=== PATIENT | male | born 1960 | race Caucasian/White ===

== ENCOUNTER 2017-09-14 05:49 | Inpatient (IN) ==
[2017-09-14] MEDS ORDERED: DIAZEPAM 5 MG TABLET PO ONE (06:49)
[2017-09-14] MEDS ORDERED: diphenhydrAMINE CAP 25 MG CAPSULE PO ONE (06:49)
[2017-09-14] MEDS ORDERED: MAGNESIUM SULF RIDER 2 GM in PREMIX 1 EACH IV PRN ×2 (06:49→16:15)
[2017-09-14] MEDS ORDERED: POTASSIUM CHLORIDE RIDER 10 MEQ in PREMIX 1 EACH IV PRN ×2 (06:49→16:15)
[2017-09-14] MEDS ORDERED: ASPIRIN 325 MG TABLET PO ONE (06:49)
[2017-09-14] MEDS ORDERED: SODIUM CHLORIDE 0.9% 1,000 ML IV SCH (07:00)
[2017-09-14] MEDS ORDERED: ASPIRIN 325 MG TABLET ONE (07:20)
[2017-09-14] MEDS ORDERED: DIAZEPAM 5 MG TABLET ONE (07:21)
[2017-09-14] MEDS ORDERED: diphenhydrAMINE CAP 25 MG CAPSULE ONE (07:21)
[2017-09-14 07:27] LABS: Basophils % 0.5 % (0.0-0.8); Eosinophils # 0.2 10*3/uL (0.0-0.87); Eosinophils % 2.9 % (0.00-10.9); Hematocrit 41.6 VOL% (42.0-52.0); Hemoglobin 14.6 GM/DL (14.0-18.0); Immature Granulocytes % 0.1 %; Immature Granulocytes Absolute 0.01 #; Lymphocytes # 3.1 10*3/uL (1.4-4.0); Lymphocytes % 42.8 % (21.2-54.2); Mean Corpuscular HGB Conc 35.1 GM/DL (32-36); Mean Corpuscular Hemoglobin 32 PG (27-34); Mean Corpuscular Volume 89.7 FL (87-102); Mean Platelet Volume 10.4 FL (9.6-12.0); Monocytes # 0.6 10*3/uL (0.11-0.8); Monocytes % 8.7 % (1.7-12.7); Neutrophils # 3.3 10*3/uL (1.4-7.4); Platelet Count 223 T/CUMM (130-400); Red Blood Count 4.64 MC/CUMM (3.8-5.5); Red Cell Distribution Width 12.8 % (9.3-17.3); White Blood Count 7.3 T/CUMM (4-12)
[2017-09-14 07:37] LABS: PT Patient Result 10.7 SECS
[2017-09-14 07:43] LABS: Calcium 8.4 MG/DL (8.5-10.1); Osmolality,Calculated 277.4 MOS/KG (273-304); Potassium 3.8 MMOL/L (3.5-5.1)
[2017-09-14] MEDS ORDERED: HYDROmorphone 2 MG/1 ML VIAL ONE ×2 (08:22→09:49)
[2017-09-14] MEDS ORDERED: NITROGLYCERIN DRIP 50 MG/250 ML BOTTLE IV ONE ×3 (08:22→17:20)
[2017-09-14] MEDS ORDERED: VERAPAMIL 5 MG/2 ML VIAL ONE (08:23)
[2017-09-14] MEDS ORDERED: MIDAZOLAM 2 MG/2 ML VIAL ONE ×2 (08:23→09:49)
[2017-09-14] MEDS ORDERED: ENOXAPARIN 60 MG/0.6 ML SYRINGE ONE ×2 (08:48→11:21)
[2017-09-14] MEDS ORDERED: ADENOSINE 90 MG/30 ML VIAL IV ONE ×2 (09:06→09:17)
[2017-09-14] MEDS ORDERED: NITROGLYCERIN SL 0.4 MG TABLET SL ONE ×2 (09:37→09:38)
[2017-09-14] MEDS ORDERED: ENOXAPARIN 30 MG/0.3 ML SYRINGE ONE ×2 (09:56→10:31)
[2017-09-14] MEDS ORDERED: NITROPRUSSIDE 50 MG/2 ML VIAL ONE (10:42)
[2017-09-14] MEDS ORDERED: VANCOMYCIN 1,000 MG VIAL ONE (11:09)
[2017-09-14] MEDS ORDERED: PAPAVERINE 60 MG/2 ML VIAL ONE (11:09)
[2017-09-14] MEDS ORDERED: SUFentanil 250 MCG/5 ML AMP ONE (11:15)
[2017-09-14] MEDS ORDERED: MIDAZOLAM 10 MG/2 ML VIAL ONE (11:15)
[2017-09-14] MEDS ORDERED: CALCIUM CHLORIDE 1,000 MG/10 ML VIAL IV ONE ×2 (11:15→17:19)
[2017-09-14] MEDS ORDERED: ePHEDrine 50 MG/ML AMP ONE (11:15)
[2017-09-14] MEDS ORDERED: ETOMIDATE 40 MG/20 ML VIAL IV ONE (11:15)
[2017-09-14] MEDS ORDERED: TRANEXAMIC ACID 1,000 MG/10 ML VIAL ONE (11:16)
[2017-09-14] MEDS ORDERED: TIROFIBAN IV ONE (11:21)
[2017-09-14] MEDS ORDERED: SODIUM CHLORIDE 0.9% 1,000 ML IV PRN ×2 (11:21→19:54)
[2017-09-14 11:41] LABS: Basophils % 0.3 % (0.0-0.8); Eosinophils # 0.2 10*3/uL (0.0-0.87); Eosinophils % 1.8 % (0.00-10.9); Hematocrit 41.7 VOL% (42.0-52.0); Immature Granulocytes % 0.4 %; Immature Granulocytes Absolute 0.04 #; Lymphocytes # 4.5 10*3/uL (1.4-4.0); Lymphocytes % 45.4 % (21.2-54.2); Mean Corpuscular HGB Conc 33.6 GM/DL (32-36); Mean Corpuscular Hemoglobin 31 PG (27-34); Mean Corpuscular Volume 92.5 FL (87-102); Mean Platelet Volume 10.7 FL (9.6-12.0); Monocytes # 0.6 10*3/uL (0.11-0.8); Monocytes % 5.9 % (1.7-12.7); Neutrophils # 4.6 10*3/uL (1.4-7.4); Neutrophils % 46.2 % (38.7-73.9); Platelet Count 228 T/CUMM (130-400); Red Blood Count 4.51 MC/CUMM (3.8-5.5); Red Cell Distribution Width 13.2 % (9.3-17.3); White Blood Count 9.9 T/CUMM (4-12)
[2017-09-14 11:48] LABS: INR 1.1; PT Patient Result 11.9 SECS
[2017-09-14 11:59] LABS: Calcium 7.9 MG/DL (8.5-10.1); Osmolality,Calculated 277.5 MOS/KG (273-304)
[2017-09-14 12:38] LABS: ABG Base Excess -1.9 MMOL/L (-2.5-2.5); ABG HCO3 22.8 MMOL/L (20-26); ABG Oxygen Saturation 99.1 % (95-100); ABG PCO2 46.3 MM HG (35-48); ABG TCO2 21.4 MMOL/L (23-27); Glucose Heart Surgery 136 MG/DL (74-106); Hematocrit Heart Surgery 41.9 PERCENT (42-52); Hemoglobin Heart Surgery 13.7 G/DL (14.0-18.0); Ionized Calcium Arterial 1.16 MMOL/L (1.21-1.46); PCO2 Patient Temp Arterial 46.3 MMHG; Patient Temperature 37 CELCIUS; Potassium Heart/CVR 3.8 MMOL/L (3.5-5.1); Sodium Heart/CVR 138 MMOL/L (135-145)
[2017-09-14] MEDS ORDERED: CEFUROXIME 1,500 MG VIAL ONE (12:38)
[2017-09-14] MEDS ORDERED: PHENYLEPHRINE DRIP 40 MG/250 ML PREMIX IV ONE (13:14)
[2017-09-14] MEDS ORDERED: POTASSIUM CHLORIDE RIDER 100 ML IV ONE (13:15)
[2017-09-14] MEDS ORDERED: ALBUMIN 5% 12.5 GM/250 ML VIAL IV ONE (13:15)
[2017-09-14] MEDS ORDERED: CALCIUM CHLORIDE 1,000 MG/10 ML SYRINGE IV ONE (13:28)
[2017-09-14] MEDS ORDERED: SODIUM BICARBONATE 50 MEQ/50 ML SYRINGE IV ONE ×2 (13:28→15:27)
[2017-09-14 14:18] LABS: Hematocrit Heart Surgery 29.4 PERCENT (42-52); Hemoglobin Heart Surgery 9.5 G/DL (14.0-18.0); PH Patient Temp Venous 7.438; PO2 Patient Temp Venous 36.1 MM HG; Potassium Heart/CVR 4.3 MMOL/L (3.5-5.1); VBG Base Excess 0.5 MEQ/L (0-4); VBG HCO3 24.6 MEQ/L (24-28); VBG Oxygen Saturation 81.5 %; VBG PCO2 41.6 MMHG (41-51); VBG PH 7.394; VBG PO2 44.5 MMHG (17-40)
[2017-09-14 14:45] LABS: Hematocrit Heart Surgery 31.4 PERCENT (42-52); Hemoglobin Heart Surgery 10.2 G/DL (14.0-18.0); PCO2 Patient Temp Venous 34.2 MM HG; PH Patient Temp Venous 7.449; PO2 Patient Temp Venous 34.2 MM HG; Potassium Heart/CVR 4.8 MMOL/L (3.5-5.1); VBG Base Excess 0.2 MEQ/L (0-4); VBG HCO3 24.2 MEQ/L (24-28); VBG Oxygen Saturation 76.4 %; VBG PCO2 37.7 MMHG (41-51); VBG PH 7.42; VBG PO2 39.3 MMHG (17-40)
[2017-09-14] MEDS ORDERED: diphenhydrAMINE 50 MG/1 ML VIAL ONE (14:54)
[2017-09-14] MEDS ORDERED: FAMOTIDINE 20 MG/2 ML VIAL IV ONE (14:55)
[2017-09-14 15:18] LABS: ABG Base Excess -1.9 MMOL/L (-2.5-2.5); ABG HCO3 22.8 MMOL/L (20-26); ABG Oxygen Saturation 99.6 % (95-100); ABG PCO2 38.5 MM HG (35-48); ABG PH 7.382 (7.35-7.45); ABG TCO2 20.7 MMOL/L (23-27); Glucose Heart Surgery 242 MG/DL (74-106); Hematocrit Heart Surgery 32.9 PERCENT (42-52); Hemoglobin Heart Surgery 10.7 G/DL (14.0-18.0); Ionized Calcium Arterial 1.16 MMOL/L (1.21-1.46); PCO2 Patient Temp Arterial 38.5 MMHG; PH Patient Temp Arterial 7.382; Patient Temperature 37 CELCIUS; Sodium Heart/CVR 137 MMOL/L (135-145)
[2017-09-14] MEDS ORDERED: HEPARIN 10,000 UNIT/10 ML VIAL ONE (15:27)
[2017-09-14] MEDS ORDERED: methylPREDNISolone SOD SUC 1,000 MG/8 ML VIAL ONE (15:27)
[2017-09-14] MEDS ORDERED: DEXTROSE 5% KCL 20 MEQ 20 MEQ/1,000 ML BAG IV ONE (15:27)
[2017-09-14] MEDS ORDERED: MANNITOL 12.5 GM/50 ML VIAL IV ONE (15:27)
[2017-09-14] MEDS ORDERED: PROTAMINE SULFATE 250 MG/25 ML VIAL IV ONE (15:27)
[2017-09-14] MEDS ORDERED: ALBUMIN 25% 25 GM/100 ML VIAL IV ONE (15:27)
[2017-09-14] MEDS ORDERED: MAGNESIUM SULFATE 1 GM/2 ML VIAL ONE (15:27)
[2017-09-14] MEDS ORDERED: FUROSEMIDE 20 MG/2 ML VIAL ONE (15:28)
[2017-09-14] MEDS ORDERED: PROTAMINE SULFATE 50 MG/5 ML VIAL IV ONE ×3 (16:03→17:53)
[2017-09-14] MEDS ORDERED: LACTATED RINGERS 250 ML IV PRN (16:15)
[2017-09-14] MEDS ORDERED: NITROPRUSSIDE 100 MG in DEXTROSE 5% 250 ML IV PRN (16:15)
[2017-09-14] MEDS ORDERED: INSULIN REGULAR 100 UNIT/ML IV ONE (16:15)
[2017-09-14] MEDS ORDERED: VECURONIUM 10 MG VIAL IV PRN ×2 (16:15)
[2017-09-14] MEDS ORDERED: MORPHINE 10 MG/1 ML VIAL IV PRN (16:15)
[2017-09-14] MEDS ORDERED: ACETAMINOPHEN 650 MG SUPP RECTAL PRN (16:15)
[2017-09-14] MEDS ORDERED: MORPHINE 4 MG/1 ML VIAL IV PRN (16:15)
[2017-09-14] MEDS ORDERED: INSULIN REGULAR 100 UNIT/ML IV PRN (16:15)
[2017-09-14] MEDS ORDERED: PHENYLEPHRINE DRIP 40 MG/250 ML PREMIX IV PRN (16:15)
[2017-09-14] MEDS ORDERED: CALCIUM CHLORIDE 1,000 MG/10 ML SYRINGE IV PRN (16:15)
[2017-09-14] MEDS ORDERED: MAGNESIUM SULF RIDER 4 GM in PREMIX 1 EACH IV PRN (16:15)
[2017-09-14] MEDS ORDERED: DEXTROSE 50% 25 GM/50 ML VIAL IV PRN ×2 (16:15)
[2017-09-14] MEDS ORDERED: MIDAZOLAM 2 MG/2 ML VIAL IV PRN (16:15)
[2017-09-14] MEDS ORDERED: MIDAZOLAM 10 MG/2 ML VIAL IV PRN (16:15)
[2017-09-14] MEDS ORDERED: ONDANSETRON 4 MG/2 ML VIAL IV PRN (16:15)
[2017-09-14] MEDS: LACTATED RINGERS 1,000 ML IV PRN ×2 (16:30→17:03)
[2017-09-14] MEDS ORDERED: INSULIN REGULAR DRIP 100 ML IV SCH (16:30)
[2017-09-14] MEDS ORDERED: SODIUM CHLORIDE 0.45% 1,000 ML IV SCH ×2 (16:30)
[2017-09-14 16:46] LABS: ABG Base Excess -0.6 MMOL/L (-2.5-2.5); ABG HCO3 23.9 MMOL/L (20-26); ABG Oxygen Saturation 99.3 % (95-100); ABG PCO2 43.2 MM HG (35-48); ABG PH 7.366 (7.35-7.45); ABG TCO2 22.6 MMOL/L (23-27); Glucose Heart Surgery 190 MG/DL (74-106); Hematocrit Heart Surgery 31.1 PERCENT (42-52); Hemoglobin Heart Surgery 10.1 G/DL (14.0-18.0); Potassium Heart/CVR 3.5 MMOL/L (3.5-5.1)
[2017-09-14] MEDS: POTASSIUM CHLORIDE RIDER 20 MEQ in PREMIX 1 EACH IV PRN ×3 (16:59→19:23)
[2017-09-14] MEDS: KETOROLAC 30 MG/1 ML VIAL IV SCH ×2 (17:08→22:17)
[2017-09-14] MEDS ORDERED: PHENYLEPHRINE 10 MG/1 ML VIAL IV ONE (17:19)
[2017-09-14] MEDS ORDERED: SEVOFLURANE 1 UNIT/15 MINUTE INH ONE (17:19)
[2017-09-14] MEDS ORDERED: SODIUM CHLORIDE 0.9% 250 ML IV ONE (17:20)
[2017-09-14] MEDS ORDERED: LACTATED RINGERS 1,000 ML IV ONE (17:20)
[2017-09-14] MEDS ORDERED: VECURONIUM 10 MG VIAL IV ONE (17:20)
[2017-09-14] MEDS ORDERED: SODIUM CHLORIDE 0.9% 1,000 ML IV ONE (17:20)
[2017-09-14 17:37] LABS: Basophils % 0.1 % (0.0-0.8); Eosinophils % 0.1 % (0.00-10.9); Hematocrit 28.8 VOL% (42.0-52.0); Hemoglobin 9.7 GM/DL (14.0-18.0); Immature Granulocytes % 0.5 %; Immature Granulocytes Absolute 0.08 #; Lymphocytes # 1.4 10*3/uL (1.4-4.0); Lymphocytes % 9.7 % (21.2-54.2); Mean Corpuscular HGB Conc 33.7 GM/DL (32-36); Mean Corpuscular Hemoglobin 31 PG (27-34); Mean Corpuscular Volume 92.9 FL (87-102); Mean Platelet Volume 10.9 FL (9.6-12.0); Monocytes # 0.6 10*3/uL (0.11-0.8); Neutrophils # 12.5 10*3/uL (1.4-7.4); Neutrophils % 85.6 % (38.7-73.9); Platelet Count 195 T/CUMM (130-400); Red Cell Distribution Width 13.2 % (9.3-17.3); White Blood Count 14.6 T/CUMM (4-12)
[2017-09-14 17:37] LABS: ABG Base Excess -0.9 MMOL/L (-2.5-2.5); ABG HCO3 23.7 MMOL/L (20-26); ABG Oxygen Saturation 98.7 % (95-100); ABG PCO2 47.1 MM HG (35-48); ABG PH 7.336 (7.35-7.45); ABG TCO2 23.1 MMOL/L (23-27); Glucose Heart Surgery 166 MG/DL (74-106); Hematocrit Heart Surgery 30.4 PERCENT (42-52); Hemoglobin Heart Surgery 9.8 G/DL (14.0-18.0); Potassium Heart/CVR 3.9 MMOL/L (3.5-5.1)
[2017-09-14 17:49] LABS: INR 1.2; PT Patient Result 12.5 SECS
[2017-09-14] MEDS: ALBUMIN 5% 12.5 GM in PREMIX 1 EACH IV PRN ×3 (17:51→18:44)
[2017-09-14 18:11] LABS: Albumin 3.1 G/DL (3.4-5.0); Bilirubin,Total 0.7 MG/DL (0.2-1.0); Calcium 8.4 MG/DL (8.5-10.1); Osmolality,Calculated 283.1 MOS/KG (273-304); Total Protein 5.3 G/DL (6.4-8.3)
[2017-09-14 18:21] LABS: CKMB % 8.4 %
[2017-09-14 19:12] LABS: ABG Base Excess -1.8 MMOL/L (-2.5-2.5); ABG HCO3 22.9 MMOL/L (20-26); ABG Oxygen Saturation 98.3 % (95-100); ABG PCO2 50.4 MM HG (35-48); ABG PH 7.302 (7.35-7.45); ABG TCO2 23.2 MMOL/L (23-27); Glucose Heart Surgery 160 MG/DL (74-106); Hematocrit Heart Surgery 27.4 PERCENT (42-52); Hemoglobin Heart Surgery 8.8 G/DL (14.0-18.0); Potassium Heart/CVR 3.9 MMOL/L (3.5-5.1)
[2017-09-14] MEDS: PROPOFOL 1,000 MG/100 ML BOTTLE IV SCH (19:40)
[2017-09-14] MEDS ORDERED: PROPOFOL 1,000 MG/100 ML BOTTLE IV ONE (19:45)
[2017-09-14] MEDS ORDERED: CHLORHEXIDINE 0.12% ORAL RINSE 60 ML BOTTLE SWISH/SPIT SCH (21:00)
[2017-09-15] MEDS ORDERED: CEFUROXIME INJ 1,500 MG in SYRINGE 1 EACH IV SCH
[2017-09-15 00:16] LABS: ABG HCO3 26.4 MMOL/L (20-26); ABG Oxygen Saturation 97.2 % (95-100); ABG PCO2 45.9 MM HG (35-48); ABG PH 7.378 (7.35-7.45); ABG PO2 107.3 MM HG (80-95); ABG TCO2 27.8 MMOL/L (23-27); Glucose Heart Surgery 162 MG/DL (74-106); Hemoglobin Heart Surgery 9.5 G/DL (14.0-18.0); Potassium Heart/CVR 4.2 MMOL/L (3.5-5.1)
[2017-09-15] MEDS ORDERED: FUROSEMIDE 40 MG/4 ML VIAL IV ONE (00:23)
[2017-09-15] MEDS: POTASSIUM CHLORIDE RIDER 20 MEQ in PREMIX 1 EACH IV PRN (00:42)
[2017-09-15 00:48] LABS: CKMB % 6.9 %
[2017-09-15] MEDS: PROPOFOL 1,000 MG/100 ML BOTTLE IV SCH (02:59)
[2017-09-15 03:30] LABS: Basophils % 0.1 % (0.0-0.8); Hematocrit 29.4 VOL% (42.0-52.0); Hemoglobin 10.1 GM/DL (14.0-18.0); Immature Granulocytes % 0.3 %; Immature Granulocytes Absolute 0.04 #; Lymphocytes # 1.5 10*3/uL (1.4-4.0); Lymphocytes % 10.8 % (21.2-54.2); Mean Corpuscular HGB Conc 34.4 GM/DL (32-36); Mean Corpuscular Hemoglobin 31 PG (27-34); Mean Corpuscular Volume 91.3 FL (87-102); Mean Platelet Volume 10.6 FL (9.6-12.0); Monocytes # 0.6 10*3/uL (0.11-0.8); Monocytes % 3.9 % (1.7-12.7); Neutrophils # 11.9 10*3/uL (1.4-7.4); Neutrophils % 84.9 % (38.7-73.9); Platelet Count 194 T/CUMM (130-400); Red Blood Count 3.22 MC/CUMM (3.8-5.5); Red Cell Distribution Width 13.7 % (9.3-17.3)
[2017-09-15 03:31] LABS: ABG Base Excess -0.9 MMOL/L (-2.5-2.5); ABG HCO3 23.7 MMOL/L (20-26); ABG Oxygen Saturation 98.9 % (95-100); ABG PCO2 44.4 MM HG (35-48); ABG PH 7.354 (7.35-7.45); ABG TCO2 22.6 MMOL/L (23-27); Glucose Heart Surgery 168 MG/DL (74-106); Hematocrit Heart Surgery 31.1 PERCENT (42-52); Hemoglobin Heart Surgery 10.1 G/DL (14.0-18.0); Potassium Heart/CVR 4.1 MMOL/L (3.5-5.1)
[2017-09-15 04:01] LABS: Albumin 3.7 G/DL (3.4-5.0); Bilirubin,Direct 0.31 MG/DL (0.0-0.20); Bilirubin,Total 1.1 MG/DL (0.2-1.0); Calcium 8.4 MG/DL (8.5-10.1); Potassium 4.3 MMOL/L (3.5-5.1); Total Protein 6.1 G/DL (6.4-8.3)
[2017-09-15] MEDS: KETOROLAC 30 MG/1 ML VIAL IV SCH ×4 (04:08→22:11)
[2017-09-15 04:09] LABS: ABG HCO3 24.4 MMOL/L (20-26); ABG PCO2 42.8 MM HG (35-48); ABG PH 7.379 (7.35-7.45); ABG TCO2 22.9 MMOL/L (23-27)
[2017-09-15] MEDS ORDERED: ZALEPLON 5 MG CAPSULE PO PRN (07:00)
[2017-09-15] MEDS ORDERED: GLUCAGON 1 MG VIAL IM PRN ×2 (07:00)
[2017-09-15] MEDS ORDERED: MAGNESIUM SULF RIDER 2 GM in PREMIX 1 EACH IV PRN (07:00)
[2017-09-15] MEDS ORDERED: MAGNESIUM SULF RIDER 4 GM in PREMIX 1 EACH IV PRN (07:00)
[2017-09-15] MEDS ORDERED: ONDANSETRON 4 MG/2 ML VIAL IV PRN (07:00)
[2017-09-15] MEDS ORDERED: DEXTROSE 50% 25 GM/50 ML VIAL IV PRN ×2 (07:00)
[2017-09-15] MEDS ORDERED: PHENYLEPHRINE DRIP 40 MG/250 ML PREMIX IV ONE (07:43)
[2017-09-15] MEDS ORDERED: CALCIUM CHLORIDE 1,000 MG/10 ML SYRINGE IV ONE (07:43)
[2017-09-15] MEDS ORDERED: NITROPRUSSIDE 50 MG/2 ML VIAL ONE (07:43)
[2017-09-15] MEDS ORDERED: POTASSIUM CHLORIDE RIDER 100 ML IV ONE (07:43)
[2017-09-15] MEDS ORDERED: SODIUM BICARBONATE 50 MEQ/50 ML SYRINGE IV ONE (07:45)
[2017-09-15] MEDS ORDERED: ALBUMIN 5% 12.5 GM/250 ML VIAL IV ONE (07:45)
[2017-09-15] MEDS: SODIUM CHLOR 0.45% KCL 20 MEQ 20 MEQ/1,000 ML BAG IV SCH (07:54)
[2017-09-15] MEDS: DOCUSATE SODIUM 100 MG CAPSULE PO SCH (08:18)
[2017-09-15] MEDS: ASPIRIN EC 325 MG TABLET PO SCH (08:18)
[2017-09-15] MEDS: FERROUS SULFATE 325 MG TABLET PO SCH (08:19)
[2017-09-15] MEDS ORDERED: ASPIRIN CHEW 81 MG TABLET PO SCH (09:00)
[2017-09-15] MEDS ORDERED: amLODIPine 5 MG TABLET PO SCH (09:00)
[2017-09-15] MEDS: CHLORHEXIDINE 0.12% ORAL RINSE 60 ML BOTTLE SWISH/SPIT SCH ×2 (09:23→22:13)
[2017-09-15] MEDS: PANTOPRAZOLE 40 MG TABLET PO SCH (09:23)
[2017-09-15] MEDS: ALUMINUM/MAGNES/SIMETH MAX STR 30 ML UDCUP PO PRN ×3 (09:58→22:16)
[2017-09-15] MEDS: MORPHINE 4 MG/1 ML VIAL IV PRN ×3 (09:59→17:30)
[2017-09-15 12:59] LABS: Apearance,Urine CLEAR (Clear); Bilirubin,Urine Negative (Negative); Blood, Urine Small mg/dL (Negative); Glucose,Urine (UA) Negative (Negative); Ketones,Urine Negative (Negative); Mucus,Urine Occasional /LPF (Occasional); Nitrite,Urine Negative (Negative); Protein,Urine Negative; RBC,Urine 4 /HPF (0-4); Squamous Epithelial Cell,Urine Occasional /HPF (0-10); Urine Color Yellow (Yellow); Urine Specific Gravity > 1.060 (1.001-1.035); Urine Urobilinogen < 2.0 EU/DL (0.2-1.0); WBC,Urine 1 /HPF (0-6)
[2017-09-15] MEDS: METOPROLOL TARTRATE 25 MG TABLET PO SCH (22:14)
[2017-09-15] MEDS: ATORVASTATIN 40 MG TABLET PO SCH (22:14)
[2017-09-15] MEDS: MAGNESIUM HYDROXIDE SUSP 30 ML UDCUP PO PRN (22:23)
[2017-09-16] MEDS: KETOROLAC 30 MG/1 ML VIAL IV SCH ×3 (04:50→16:39)
[2017-09-16 05:23] LABS: Hematocrit 25.9 VOL% (42.0-52.0); Hemoglobin 8.8 GM/DL (14.0-18.0); Immature Granulocytes % 0.5 %; Immature Granulocytes Absolute 0.09 #; Mean Corpuscular Hemoglobin 31 PG (27-34); Mean Corpuscular Volume 92.2 FL (87-102); Mean Platelet Volume 11.5 FL (9.6-12.0); Monocytes # 1.5 10*3/uL (0.11-0.8); Monocytes % 8.2 % (1.7-12.7); Neutrophils # 13.2 10*3/uL (1.4-7.4); Neutrophils % 74.3 % (38.7-73.9); Platelet Count 169 T/CUMM (130-400); Red Blood Count 2.81 MC/CUMM (3.8-5.5); Red Cell Distribution Width 14.3 % (9.3-17.3); White Blood Count 17.8 T/CUMM (4-12)
[2017-09-16] MEDS ORDERED: FUROSEMIDE 40 MG/4 ML VIAL IV ONE (06:00)
[2017-09-16 06:05] LABS: Risk Ratio 2.93; VLDL CHOLESTEROL 21.2 MG/DL
[2017-09-16 06:19] LABS: Albumin 3.5 G/DL (3.4-5.0); Bilirubin,Direct 0.21 MG/DL (0.0-0.20); Bilirubin,Indirect 0.6 MG/DL (0.0-1.0); Bilirubin,Total 0.8 MG/DL (0.2-1.0); CKMB % 1.3 %; Calcium 8.5 MG/DL (8.5-10.1); Osmolality,Calculated 287.3 MOS/KG (273-304); Potassium 4.7 MMOL/L (3.5-5.1); Total Protein 5.9 G/DL (6.4-8.3)
[2017-09-16] MEDS ORDERED: SODIUM PHOSPHATE ENEMA 133 ML BOTTLE RECTAL ONE (08:37)
[2017-09-16] MEDS: METOPROLOL TARTRATE 25 MG TABLET PO SCH (09:22)
[2017-09-16] MEDS: MAGNESIUM HYDROXIDE SUSP 30 ML UDCUP PO PRN (09:22)
[2017-09-16] MEDS: DOCUSATE SODIUM 100 MG CAPSULE PO SCH (09:22)
[2017-09-16] MEDS: PANTOPRAZOLE 40 MG TABLET PO SCH (09:22)
[2017-09-16] MEDS: FERROUS SULFATE 325 MG TABLET PO SCH (09:22)
[2017-09-16] MEDS: CHLORHEXIDINE 0.12% ORAL RINSE 60 ML BOTTLE SWISH/SPIT SCH (09:22)
[2017-09-16] MEDS: SODIUM CHLOR 0.45% KCL 20 MEQ 20 MEQ/1,000 ML BAG IV SCH (09:22)
[2017-09-16] MEDS: ASPIRIN EC 325 MG TABLET PO SCH (09:22)
[2017-09-16] MEDS: oxyCODONE/ACETAMINOPHEN 5-325 MG TABLET PO PRN ×2 (11:51→16:50)
[2017-09-16] MEDS: CLORAZEPATE 7.5 MG TABLET PO PRN (12:00)
[2017-09-16 19:16] LABS: Basophils % 0.2 % (0.0-0.8); Hematocrit 27.6 VOL% (42.0-52.0); Hemoglobin 9.3 GM/DL (14.0-18.0); Immature Granulocytes % 0.3 %; Immature Granulocytes Absolute 0.04 #; Lymphocytes # 2.5 10*3/uL (1.4-4.0); Lymphocytes % 19.3 % (21.2-54.2); Mean Corpuscular HGB Conc 33.7 GM/DL (32-36); Mean Corpuscular Hemoglobin 31 PG (27-34); Mean Platelet Volume 11.1 FL (9.6-12.0); Monocytes # 0.3 10*3/uL (0.11-0.8); Monocytes % 2.3 % (1.7-12.7); NRBC # 0.02 10*3/uL; Neutrophils # 10.2 10*3/uL (1.4-7.4); Neutrophils % 77.9 % (38.7-73.9); Platelet Count 182 T/CUMM (130-400); Red Cell Distribution Width 13.8 % (9.3-17.3)
[2017-09-16] MEDS ORDERED: SODIUM CHLORIDE 0.9% 1,000 ML IV PRN (20:46)
[2017-09-16] MEDS: metroNIDAZOLE INJ 500 MG in PREMIX 1 EACH IV SCH (21:10)
[2017-09-16 21:31] LABS: ABG Base Excess 5.8 MMOL/L (-2.5-2.5); ABG HCO3 29.7 MMOL/L (20-26); ABG Oxygen Saturation 99.8 % (95-100); ABG PCO2 35.6 MM HG (35-48); ABG PH 7.518 (7.35-7.45); ABG TCO2 26.5 MMOL/L (23-27); Glucose Heart Surgery 114 MG/DL (74-106); Hematocrit Heart Surgery 27.7 PERCENT (42-52); Hemoglobin Heart Surgery 8.9 G/DL (14.0-18.0)
[2017-09-16] MEDS: PROPOFOL 1,000 MG/100 ML BOTTLE IV SCH (22:45)
[2017-09-16] MEDS: LACTATED RINGERS 1,000 ML IV SCH (23:00)
[2017-09-16] MEDS ORDERED: HEPARIN/NACL 0.9% 2 UNITS/ML 500 ML IV ONE (23:02)
[2017-09-16] MEDS ORDERED: MIDAZOLAM 10 MG/2 ML VIAL ONE (23:03)
[2017-09-16] MEDS ORDERED: ETOMIDATE 40 MG/20 ML VIAL IV ONE (23:03)
[2017-09-16] MEDS ORDERED: SEVOFLURANE 1 UNIT/15 MINUTE INH ONE (23:03)
[2017-09-16] MEDS ORDERED: fentaNYL 100 MCG/2 ML VIAL ONE (23:03)
[2017-09-16] MEDS ORDERED: VECURONIUM 10 MG VIAL IV ONE (23:03)
[2017-09-16] MEDS ORDERED: MIDAZOLAM 2 MG/2 ML VIAL ONE (23:03)
[2017-09-16] MEDS ORDERED: LACTATED RINGERS 1,000 ML IV ONE (23:04)
[2017-09-16] MEDS ORDERED: SUCCINYLCHOLINE 200 MG/10 ML VIAL ONE (23:04)
[2017-09-16] MEDS ORDERED: PHENYLEPHRINE 1 MG/10 ML SYRINGE IV ONE ×2 (23:04)
[2017-09-16] MEDS ORDERED: SODIUM CHLORIDE 0.9% 1,000 ML IV ONE (23:04)
[2017-09-16 23:48] LABS: ABG Base Excess 2.4 MMOL/L (-2.5-2.5); ABG HCO3 26.5 MMOL/L (20-26); ABG Oxygen Saturation 98.3 % (95-100); ABG PCO2 48.4 MM HG (35-48); ABG PH 7.375 (7.35-7.45); ABG TCO2 25.4 MMOL/L (23-27)
[2017-09-17] MEDS: ATORVASTATIN 40 MG TABLET PO SCH ×2 (00:08→20:43)
[2017-09-17] MEDS: METOPROLOL TARTRATE 25 MG TABLET PO SCH ×3 (00:08→20:43)
[2017-09-17] MEDS: CHLORHEXIDINE 0.12% ORAL RINSE 60 ML BOTTLE SWISH/SPIT SCH ×3 (00:08→20:51)
[2017-09-17] MEDS: KETOROLAC 30 MG/1 ML VIAL IV SCH ×3 (00:27→09:11)
[2017-09-17] MEDS: PIPERACILLIN/TAZOBACTAM 3,375 MG in SODIUM CHLORIDE 0.9% 100 ML IV SCH ×3 (00:28→17:15)
[2017-09-17] MEDS ORDERED: ALBUMIN 5% 25 GM in PREMIX 1 EACH IV ONE (01:11)
[2017-09-17] MEDS ORDERED: ALBUMIN 5% 12.5 GM/250 ML VIAL IV ONE (01:13)
[2017-09-17] MEDS: MORPHINE 4 MG/1 ML VIAL IV PRN ×2 (01:45→06:54)
[2017-09-17] MEDS ORDERED: NOREPINEPHRINE 4 MG/4 ML VIAL IV ONE (02:20)
[2017-09-17] MEDS: NOREPINEPHRINE 8 MG in SODIUM CHLORIDE 0.9% 242 ML IV PRN (02:39)
[2017-09-17 03:07] LABS: ABG Base Excess 3.4 MMOL/L (-2.5-2.5); ABG HCO3 27.5 MMOL/L (20-26); ABG Oxygen Saturation 99.5 % (95-100); ABG PCO2 42.8 MM HG (35-48); ABG PH 7.426 (7.35-7.45); ABG TCO2 25.6 MMOL/L (23-27)
[2017-09-17] MEDS: metroNIDAZOLE INJ 500 MG in PREMIX 1 EACH IV SCH ×4 (03:07→20:50)
[2017-09-17 03:19] LABS: Basophils % 0.2 % (0.0-0.8); Eosinophils % 0.1 % (0.00-10.9); Hematocrit 28.9 VOL% (42.0-52.0); Immature Granulocytes % 0.3 %; Immature Granulocytes Absolute 0.03 #; Lymphocytes # 2.9 10*3/uL (1.4-4.0); Lymphocytes % 25.4 % (21.2-54.2); Mean Corpuscular HGB Conc 34.6 GM/DL (32-36); Mean Corpuscular Hemoglobin 31 PG (27-34); Mean Corpuscular Volume 88.4 FL (87-102); Mean Platelet Volume 11.4 FL (9.6-12.0); Monocytes # 0.2 10*3/uL (0.11-0.8); Monocytes % 2.1 % (1.7-12.7); NRBC # 0.03 10*3/uL; Neutrophils # 8.2 10*3/uL (1.4-7.4); Neutrophils % 71.9 % (38.7-73.9); Platelet Count 154 T/CUMM (130-400); Red Blood Count 3.27 MC/CUMM (3.8-5.5); Red Cell Distribution Width 14.4 % (9.3-17.3); White Blood Count 11.4 T/CUMM (4-12)
[2017-09-17 03:50] LABS: Alanine Aminotransferase 34 U/L (16-61); Albumin 3.1 G/DL (3.4-5.0); Alkaline Phosphatase 32 U/L (45-117); Aspartate Amino Transferase 48 U/L (0-37); Bilirubin,Indirect 0.8 MG/DL (0.0-1.0); Blood Urea Nitrogen 24 MG/DL (7-18); Calcium 7.4 MG/DL (8.5-10.1); Glucose 103 MG/DL (74-106); Osmolality,Calculated 276.8 MOS/KG (273-304); Potassium 3.9 MMOL/L (3.5-5.1); Sodium 137 MMOL/L (136-145); Total Protein 5.1 G/DL (6.4-8.3)
[2017-09-17] MEDS: PROPOFOL 1,000 MG/100 ML BOTTLE IV SCH ×6 (03:50→23:05)
[2017-09-17] MEDS: LACTATED RINGERS 1,000 ML IV SCH ×3 (04:25→18:29)
[2017-09-17 04:43] LABS: Band Neutrophils 21 % (0-10); Lymphocytes 28 % (20-55); Metamyelocytes 1 %; Myelocytes 1 %; Segmented Neutrophils 46 % (50-85); Total Cells Counted 100
[2017-09-17 04:45] LABS: Hypochromasia 1+; Platelet Estimate Normal
[2017-09-17 04:46] LABS: Giant Platelets Few; Polychromasia Few; Reactive Lymphocytes 1+
[2017-09-17 04:47] LABS: Microcytosis 1+
[2017-09-17] MEDS: fentaNYL INJ 1,250 MCG in SODIUM CHLORIDE 0.9% 225 ML IV PRN ×4 (07:34→20:44)
[2017-09-17] MEDS: DOCUSATE SODIUM 100 MG CAPSULE PO SCH (08:57)
[2017-09-17] MEDS: FERROUS SULFATE 325 MG TABLET PO SCH (08:57)
[2017-09-17] MEDS: PANTOPRAZOLE 40 MG TABLET PO SCH (10:13)
[2017-09-17] MEDS: ASPIRIN EC 325 MG TABLET PO SCH (10:13)
[2017-09-17] MEDS: PANTOPRAZOLE 40 MG VIAL IV SCH (12:06)
[2017-09-17 13:11] LABS: Hematocrit 27.9 VOL% (42.0-52.0); Hemoglobin 9.5 GM/DL (14.0-18.0)
[2017-09-17] MEDS ORDERED: SODIUM CHLORIDE 0.9% 1,000 ML IV ONE (13:39)
[2017-09-17] MEDS ORDERED: ALBUMIN 25% 25 GM in PREMIX 1 EACH IV ONE (14:28)
[2017-09-18] MEDS: fentaNYL INJ 1,250 MCG in SODIUM CHLORIDE 0.9% 225 ML IV PRN ×7 (00:10→21:50)
[2017-09-18] MEDS: LACTATED RINGERS 1,000 ML IV SCH ×6 (00:23→22:34)
[2017-09-18] MEDS: PIPERACILLIN/TAZOBACTAM 3,375 MG in SODIUM CHLORIDE 0.9% 100 ML IV SCH ×4 (01:09→22:24)
[2017-09-18] MEDS: PROPOFOL 1,000 MG/100 ML BOTTLE IV SCH ×4 (04:20→22:23)
[2017-09-18 04:29] LABS: ABG Base Excess 0.9 MMOL/L (-2.5-2.5); ABG HCO3 27.3 MMOL/L (20-26); ABG Oxygen Saturation 96.7 % (95-100); ABG PCO2 52.8 MM HG (35-48); ABG PH 7.332 (7.35-7.45); ABG PO2 103.9 MM HG (80-95)
[2017-09-18 04:40] LABS: Basophils % 0.1 % (0.0-0.8); Eosinophils # 0.5 10*3/uL (0.0-0.87); Eosinophils % 3.4 % (0.00-10.9); Hematocrit 28.8 VOL% (42.0-52.0); Hemoglobin 9.3 GM/DL (14.0-18.0); Immature Granulocytes % 0.7 %; Lymphocytes # 2.4 10*3/uL (1.4-4.0); Lymphocytes % 16.6 % (21.2-54.2); Mean Corpuscular HGB Conc 32.3 GM/DL (32-36); Mean Corpuscular Hemoglobin 31 PG (27-34); Mean Corpuscular Volume 95.4 FL (87-102); Mean Platelet Volume 11.5 FL (9.6-12.0); Monocytes # 0.7 10*3/uL (0.11-0.8); Monocytes % 4.6 % (1.7-12.7); NRBC # 0.03 10*3/uL; Neutrophils # 10.6 10*3/uL (1.4-7.4); Neutrophils % 74.6 % (38.7-73.9); Platelet Count 162 T/CUMM (130-400); Red Blood Count 3.02 MC/CUMM (3.8-5.5); Red Cell Distribution Width 14.4 % (9.3-17.3); White Blood Count 14.2 T/CUMM (4-12)
[2017-09-18] MEDS: metroNIDAZOLE INJ 500 MG in PREMIX 1 EACH IV SCH ×4 (04:41→18:33)
[2017-09-18] MEDS: NOREPINEPHRINE 8 MG in SODIUM CHLORIDE 0.9% 242 ML IV PRN (04:45)
[2017-09-18 05:14] LABS: Calcium 7.7 MG/DL (8.5-10.1); Osmolality,Calculated 280.4 MOS/KG (273-304)
[2017-09-18 05:19] LABS: Band Neutrophils 3 % (0-10); Eosinophils 5 % (0-10); Hypochromasia 1+; Lymphocytes 16 % (20-55); Microcytosis 1+; Segmented Neutrophils 75 % (50-85); Total Cells Counted 100
[2017-09-18] MEDS: CHLORHEXIDINE 0.12% ORAL RINSE 60 ML BOTTLE SWISH/SPIT SCH ×2 (09:00→22:23)
[2017-09-18] MEDS: PANTOPRAZOLE 40 MG VIAL IV SCH (09:24)
[2017-09-18] MEDS: FERROUS SULFATE 325 MG TABLET PO SCH (09:33)
[2017-09-18] MEDS: DOCUSATE SODIUM 100 MG CAPSULE PO SCH (09:33)
[2017-09-18] MEDS: METOPROLOL TARTRATE 25 MG TABLET PO SCH ×2 (10:22→22:07)
[2017-09-18] MEDS ORDERED: MIDAZOLAM 10 MG/2 ML VIAL ONE (12:35)
[2017-09-18] MEDS ORDERED: SEVOFLURANE 1 UNIT/15 MINUTE INH ONE (12:35)
[2017-09-18] MEDS ORDERED: ROCURONIUM 100 MG/10 ML VIAL IV ONE (12:35)
[2017-09-18] MEDS: ACETAMINOPHEN 325 MG TABLET PO PRN (18:32)
[2017-09-18] MEDS: ATORVASTATIN 40 MG TABLET PO SCH (22:07)
[2017-09-19] MEDS: fentaNYL INJ 1,250 MCG in SODIUM CHLORIDE 0.9% 225 ML IV PRN ×6 (01:35→21:23)
[2017-09-19] MEDS: metroNIDAZOLE INJ 500 MG in PREMIX 1 EACH IV SCH ×4 (01:47→18:33)
[2017-09-19] MEDS: LACTATED RINGERS 1,000 ML IV SCH ×4 (03:46→21:22)
[2017-09-19 04:19] LABS: ABG Base Excess 2.7 MMOL/L (-2.5-2.5); ABG HCO3 28.3 MMOL/L (20-26); ABG Oxygen Saturation 94.8 % (95-100); ABG PCO2 48.4 MM HG (35-48); ABG PH 7.385 (7.35-7.45); ABG TCO2 29.8 MMOL/L (23-27)
[2017-09-19 04:24] LABS: Basophils % 0.2 % (0.0-0.8); Eosinophils # 0.6 10*3/uL (0.0-0.87); Eosinophils % 3.6 % (0.00-10.9); Hematocrit 29.6 VOL% (42.0-52.0); Hemoglobin 9.7 GM/DL (14.0-18.0); Immature Granulocytes % 1.2 %; Immature Granulocytes Absolute 0.21 #; Lymphocytes # 1.7 10*3/uL (1.4-4.0); Lymphocytes % 9.8 % (21.2-54.2); Mean Corpuscular HGB Conc 32.8 GM/DL (32-36); Mean Corpuscular Hemoglobin 31 PG (27-34); Mean Platelet Volume 10.9 FL (9.6-12.0); Monocytes % 5.9 % (1.7-12.7); NRBC # 0.15 10*3/uL; Neutrophils % 79.3 % (38.7-73.9); Platelet Count 186 T/CUMM (130-400); Red Blood Count 3.15 MC/CUMM (3.8-5.5); Red Cell Distribution Width 13.9 % (9.3-17.3); White Blood Count 17.7 T/CUMM (4-12)
[2017-09-19 05:12] LABS: Alanine Aminotransferase 27 U/L (16-61); Albumin 2.2 G/DL (3.4-5.0); Alkaline Phosphatase 40 U/L (45-117); Aspartate Amino Transferase 51 U/L (0-37); Bilirubin,Indirect 0.4 MG/DL (0.0-1.0); Blood Urea Nitrogen 17 MG/DL (7-18); Calcium 7.4 MG/DL (8.5-10.1); Glucose 113 MG/DL (74-106); Osmolality,Calculated 285.1 MOS/KG (273-304); Potassium 4.3 MMOL/L (3.5-5.1); Sodium 142 MMOL/L (136-145); Total Protein 4.3 G/DL (6.4-8.3)
[2017-09-19] MEDS: PROPOFOL 1,000 MG/100 ML BOTTLE IV SCH ×3 (05:15→20:03)
[2017-09-19] MEDS: PIPERACILLIN/TAZOBACTAM 3,375 MG in SODIUM CHLORIDE 0.9% 100 ML IV SCH ×3 (06:08→21:30)
[2017-09-19] MEDS: PANTOPRAZOLE 40 MG VIAL IV SCH (09:22)
[2017-09-19] MEDS: DOCUSATE SODIUM 100 MG CAPSULE PO SCH (09:25)
[2017-09-19] MEDS: FERROUS SULFATE 325 MG TABLET PO SCH (09:25)
[2017-09-19] MEDS: CHLORHEXIDINE 0.12% ORAL RINSE 60 ML BOTTLE SWISH/SPIT SCH ×2 (09:25→21:34)
[2017-09-19] MEDS: METOPROLOL TARTRATE 25 MG TABLET PO SCH ×2 (09:25→21:30)
[2017-09-19] MEDS: INSULIN REGULAR 100 UNIT/ML SUBCUT SCH ×2 (12:37→18:33)
[2017-09-19] MEDS: ASPIRIN CHEW 81 MG TABLET PO SCH (15:45)
[2017-09-19] MEDS ORDERED: DEXTROSE 10% 1,000 ML IV PRN (17:00)
[2017-09-19] MEDS: TRACE ELEMENTS (5) 1 ML, MULTIVITAMIN INJ 10 ML in AMINO ACIDS 10% 700 ML, DEXTROSE 70%... IV SCH (17:18)
[2017-09-19] MEDS: ATORVASTATIN 40 MG TABLET PO SCH (21:30)
[2017-09-20] MEDS: INSULIN REGULAR 100 UNIT/ML SUBCUT SCH ×4 (00:51→17:26)
[2017-09-20] MEDS: metroNIDAZOLE INJ 500 MG in PREMIX 1 EACH IV SCH ×4 (00:52→18:17)
[2017-09-20] MEDS: fentaNYL INJ 1,250 MCG in SODIUM CHLORIDE 0.9% 225 ML IV PRN ×5 (00:53→22:10)
[2017-09-20] MEDS: ACETAMINOPHEN 325 MG TABLET PO PRN ×2 (04:37→17:27)
[2017-09-20] MEDS: PIPERACILLIN/TAZOBACTAM 3,375 MG in SODIUM CHLORIDE 0.9% 100 ML IV SCH ×3 (04:39→21:40)
[2017-09-20] MEDS: PROPOFOL 1,000 MG/100 ML BOTTLE IV SCH ×2 (04:45→14:18)
[2017-09-20 05:14] LABS: Basophils # 0.1 10*3/uL (0.0-0.2); Basophils % 0.4 % (0.0-0.8); Hematocrit 28.6 VOL% (42.0-52.0); Hemoglobin 9.2 GM/DL (14.0-18.0); Immature Granulocytes % 3.2 %; Immature Granulocytes Absolute 0.51 #; Lymphocytes # 1.7 10*3/uL (1.4-4.0); Lymphocytes % 10.6 % (21.2-54.2); Mean Corpuscular HGB Conc 32.2 GM/DL (32-36); Mean Corpuscular Hemoglobin 31 PG (27-34); Mean Platelet Volume 11.2 FL (9.6-12.0); Monocytes # 1.1 10*3/uL (0.11-0.8); Monocytes % 6.9 % (1.7-12.7); NRBC # 0.31 10*3/uL; Neutrophils # 11.6 10*3/uL (1.4-7.4); Neutrophils % 72.9 % (38.7-73.9); Platelet Count 199 T/CUMM (130-400); Red Blood Count 3.01 MC/CUMM (3.8-5.5); Red Cell Distribution Width 13.8 % (9.3-17.3); White Blood Count 15.9 T/CUMM (4-12)
[2017-09-20 05:34] LABS: Hypochromasia 1+; Ovalocytes Slight
[2017-09-20 05:35] LABS: Microcytosis 1+; Platelet Estimate Adequate
[2017-09-20 05:49] LABS: Alanine Aminotransferase 25 U/L (16-61); Albumin 1.9 G/DL (3.4-5.0); Alkaline Phosphatase 45 U/L (45-117); Aspartate Amino Transferase 34 U/L (0-37); Bilirubin,Indirect 0.4 MG/DL (0.0-1.0); Blood Urea Nitrogen 20 MG/DL (7-18); Calcium 7.1 MG/DL (8.5-10.1); Glucose 166 MG/DL (74-106); Osmolality,Calculated 292.8 MOS/KG (273-304); Potassium 3.9 MMOL/L (3.5-5.1); Sodium 144 MMOL/L (136-145); Total Protein 4.1 G/DL (6.4-8.3)
[2017-09-20 05:50] LABS: Prealbumin 5.2 MG/DL (20-40)
[2017-09-20] MEDS ORDERED: LIDOCAINE 1%/EPI INJ 20 ML VIAL ONE (06:21)
[2017-09-20] MEDS ORDERED: FUROSEMIDE 40 MG/4 ML VIAL IV ONE (06:55)
[2017-09-20] MEDS: LACTATED RINGERS 1,000 ML IV SCH (07:23)
[2017-09-20] MEDS: TRACE ELEMENTS (5) 1 ML, MULTIVITAMIN INJ 10 ML in AMINO ACIDS 10% 700 ML, DEXTROSE 70%... IV SCH ×2 (09:30→17:26)
[2017-09-20] MEDS: ASPIRIN CHEW 81 MG TABLET PO SCH (09:32)
[2017-09-20] MEDS: CHLORHEXIDINE 0.12% ORAL RINSE 60 ML BOTTLE SWISH/SPIT SCH ×2 (09:32→21:41)
[2017-09-20] MEDS: PANTOPRAZOLE 40 MG VIAL IV SCH (09:32)
[2017-09-20] MEDS: FERROUS SULFATE 325 MG TABLET PO SCH (09:32)
[2017-09-20] MEDS: DOCUSATE SODIUM 100 MG CAPSULE PO SCH (09:32)
[2017-09-20] MEDS: POTASSIUM CHLORIDE 20 MEQ TABLET PO PRN ×2 (09:32→10:34)
[2017-09-20] MEDS: METOPROLOL TARTRATE 25 MG TABLET PO SCH ×2 (09:33→21:40)
[2017-09-20 09:48] LABS: ABG Base Excess 2.7 MMOL/L (-2.5-2.5); ABG HCO3 28.8 MMOL/L (20-26); ABG Oxygen Saturation 92.1 % (95-100); ABG PCO2 51.4 MM HG (35-48); ABG PH 7.366 (7.35-7.45); ABG PO2 71.6 MM HG (80-95); ABG TCO2 30.4 MMOL/L (23-27)
[2017-09-20] MEDS: MORPHINE 4 MG/1 ML VIAL IV PRN (10:45)
[2017-09-20] MEDS ORDERED: PHENYLEPHRINE DRIP 0 MG/0 ML PREMIX IV ONE (12:47)
[2017-09-20] MEDS ORDERED: fentaNYL 100 MCG/2 ML VIAL ONE (14:03)
[2017-09-20] MEDS ORDERED: VECURONIUM 10 MG VIAL IV ONE (14:03)
[2017-09-20] MEDS ORDERED: SEVOFLURANE 1 UNIT/15 MINUTE INH ONE (14:03)
[2017-09-20] MEDS ORDERED: MIDAZOLAM 10 MG/2 ML VIAL ONE (14:03)
[2017-09-20] MEDS ORDERED: SUFentanil 50 MCG/ML AMP ONE (14:03)
[2017-09-20] MEDS: ATORVASTATIN 40 MG TABLET PO SCH (21:40)
[2017-09-21] MEDS: INSULIN REGULAR 100 UNIT/ML SUBCUT SCH ×5 (01:13→23:47)
[2017-09-21] MEDS: metroNIDAZOLE INJ 500 MG in PREMIX 1 EACH IV SCH ×4 (01:13→18:44)
[2017-09-21] MEDS: HEPARIN/NACL 0.9% 2 UNITS/ML 500 ML IV SCH (02:28)
[2017-09-21] MEDS: PROPOFOL 1,000 MG/100 ML BOTTLE IV SCH ×3 (02:35→20:40)
[2017-09-21] MEDS: fentaNYL INJ 1,250 MCG in SODIUM CHLORIDE 0.9% 225 ML IV PRN ×5 (02:44→20:42)
[2017-09-21 05:16] LABS: ABG HCO3 26.2 MMOL/L (20-26); ABG Oxygen Saturation 99.1 % (95-100); ABG PCO2 51.3 MM HG (35-48); ABG PH 7.349 (7.35-7.45); ABG TCO2 26.1 MMOL/L (23-27)
[2017-09-21] MEDS: TRACE ELEMENTS (5) 1 ML, MULTIVITAMIN INJ 10 ML in AMINO ACIDS 10% 700 ML, DEXTROSE 70%... IV SCH ×2 (05:24→17:04)
[2017-09-21] MEDS: PIPERACILLIN/TAZOBACTAM 3,375 MG in SODIUM CHLORIDE 0.9% 100 ML IV SCH ×3 (05:25→21:43)
[2017-09-21 05:30] LABS: Basophils % 0.2 % (0.0-0.8); Eosinophils # 0.5 10*3/uL (0.0-0.87); Eosinophils % 2.8 % (0.00-10.9); Hematocrit 27.9 VOL% (42.0-52.0); Hemoglobin 9.3 GM/DL (14.0-18.0); Immature Granulocytes Absolute 0.48 #; Lymphocytes # 1.6 10*3/uL (1.4-4.0); Lymphocytes % 10.1 % (21.2-54.2); Mean Corpuscular HGB Conc 33.3 GM/DL (32-36); Mean Corpuscular Hemoglobin 32 PG (27-34); Mean Corpuscular Volume 94.6 FL (87-102); Monocytes # 1.1 10*3/uL (0.11-0.8); Monocytes % 6.7 % (1.7-12.7); NRBC # 0.29 10*3/uL; Neutrophils # 12.3 10*3/uL (1.4-7.4); Neutrophils % 77.2 % (38.7-73.9); Platelet Count 227 T/CUMM (130-400); Red Blood Count 2.95 MC/CUMM (3.8-5.5); Red Cell Distribution Width 13.9 % (9.3-17.3); White Blood Count 15.9 T/CUMM (4-12)
[2017-09-21 05:51] LABS: Band Neutrophils 4 % (0-10); Eosinophils 1 % (0-10); Lymphocytes 11 % (20-55); Nucleated Red Blood Cells 3 (0-5); Segmented Neutrophils 81 % (50-85); Total Cells Counted 100
[2017-09-21 05:52] LABS: Hypochromasia 1+; Microcytosis 1+
[2017-09-21 05:53] LABS: Platelet Estimate Normal
[2017-09-21 06:00] LABS: Calcium 6.9 MG/DL (8.5-10.1); Osmolality,Calculated 295.8 MOS/KG (273-304); Potassium 4.1 MMOL/L (3.5-5.1)
[2017-09-21] MEDS ORDERED: CALCIUM GLUCONATE 2,000 MG in SODIUM CHLORIDE 0.9% 100 ML IV ONE (07:30)
[2017-09-21] MEDS: PANTOPRAZOLE 40 MG VIAL IV SCH (09:36)
[2017-09-21] MEDS: FERROUS SULFATE 325 MG TABLET PO SCH (09:39)
[2017-09-21] MEDS: METOPROLOL TARTRATE 25 MG TABLET PO SCH ×2 (09:39→21:44)
[2017-09-21] MEDS: ASPIRIN CHEW 81 MG TABLET PO SCH (09:40)
[2017-09-21] MEDS: CHLORHEXIDINE 0.12% ORAL RINSE 60 ML BOTTLE SWISH/SPIT SCH ×2 (09:44→21:43)
[2017-09-21] MEDS: DOCUSATE SODIUM 100 MG/10 ML UDCUP PO SCH (10:35)
[2017-09-21] MEDS: DOCUSATE SODIUM 100 MG CAPSULE PO SCH (19:23)
[2017-09-21] MEDS: ATORVASTATIN 40 MG TABLET PO SCH (21:43)
[2017-09-21] MEDS: ACETAMINOPHEN 325 MG TABLET PO PRN (21:44)
[2017-09-22] MEDS: metroNIDAZOLE INJ 500 MG in PREMIX 1 EACH IV SCH ×4 (00:02→18:34)
[2017-09-22] MEDS: fentaNYL INJ 1,250 MCG in SODIUM CHLORIDE 0.9% 225 ML IV PRN ×4 (01:05→17:58)
[2017-09-22] MEDS: PROPOFOL 1,000 MG/100 ML BOTTLE IV SCH ×4 (02:50→21:53)
[2017-09-22 04:28] LABS: ABG Base Excess 4.2 MMOL/L (-2.5-2.5); ABG HCO3 28.2 MMOL/L (20-26); ABG Oxygen Saturation 99.2 % (95-100); ABG PH 7.354 (7.35-7.45); ABG TCO2 28.6 MMOL/L (23-27)
[2017-09-22 04:31] LABS: Basophils # 0.1 10*3/uL (0.0-0.2); Basophils % 0.3 % (0.0-0.8); Eosinophils # 0.7 10*3/uL (0.0-0.87); Eosinophils % 3.4 % (0.00-10.9); Hemoglobin 8.4 GM/DL (14.0-18.0); Immature Granulocytes % 4.3 %; Immature Granulocytes Absolute 0.94 #; Lymphocytes # 1.7 10*3/uL (1.4-4.0); Lymphocytes % 7.8 % (21.2-54.2); Mean Corpuscular HGB Conc 31.1 GM/DL (32-36); Mean Corpuscular Hemoglobin 31 PG (27-34); Mean Corpuscular Volume 98.9 FL (87-102); Mean Platelet Volume 11.1 FL (9.6-12.0); Monocytes # 1.1 10*3/uL (0.11-0.8); Monocytes % 5.1 % (1.7-12.7); NRBC # 0.41 10*3/uL; Neutrophils # 17.5 10*3/uL (1.4-7.4); Neutrophils % 79.1 % (38.7-73.9); Platelet Count 238 T/CUMM (130-400); Red Blood Count 2.73 MC/CUMM (3.8-5.5); Red Cell Distribution Width 14.5 % (9.3-17.3); White Blood Count 22.1 T/CUMM (4-12)
[2017-09-22 04:55] LABS: Band Neutrophils 4 % (0-10); Calcium 7.1 MG/DL (8.5-10.1); Eosinophils 3 % (0-10); Lymphocytes 6 % (20-55); Osmolality,Calculated 298.7 MOS/KG (273-304); Potassium 3.6 MMOL/L (3.5-5.1); Segmented Neutrophils 85 % (50-85); Total Cells Counted 100
[2017-09-22 04:56] LABS: Hypochromasia 1+; Microcytosis 1+
[2017-09-22] MEDS: HEPARIN/NACL 0.9% 2 UNITS/ML 500 ML IV SCH (05:17)
[2017-09-22 05:25] LABS: Prealbumin 5.3 MG/DL (20-40)
[2017-09-22] MEDS: PIPERACILLIN/TAZOBACTAM 3,375 MG in SODIUM CHLORIDE 0.9% 100 ML IV SCH ×3 (05:49→21:47)
[2017-09-22] MEDS: TRACE ELEMENTS (5) 1 ML, MULTIVITAMIN INJ 10 ML in AMINO ACIDS 10% 700 ML, DEXTROSE 70%... IV SCH ×2 (05:50→18:06)
[2017-09-22] MEDS: POTASSIUM CHLORIDE 20 MEQ TABLET PO PRN ×2 (05:55→09:57)
[2017-09-22] MEDS: INSULIN REGULAR 100 UNIT/ML SUBCUT SCH ×3 (05:56→17:57)
[2017-09-22 07:01] LABS: ABG Base Excess 4.4 MMOL/L (-2.5-2.5); ABG HCO3 30.2 MMOL/L (20-26); ABG Oxygen Saturation 93.9 % (95-100); ABG PCO2 51.1 MM HG (35-48); ABG PH 7.389 (7.35-7.45); ABG PO2 70.2 MM HG (80-95); ABG TCO2 31.7 MMOL/L (23-27)
[2017-09-22] MEDS ORDERED: FUROSEMIDE 40 MG/4 ML VIAL IV SCH (09:00)
[2017-09-22] MEDS: DOCUSATE SODIUM 100 MG/10 ML UDCUP PO SCH (09:57)
[2017-09-22] MEDS: METOPROLOL TARTRATE 25 MG TABLET PO SCH ×2 (09:57→20:11)
[2017-09-22] MEDS: ASPIRIN CHEW 81 MG TABLET PO SCH (09:57)
[2017-09-22] MEDS: FERROUS SULFATE 325 MG TABLET PO SCH (09:58)
[2017-09-22] MEDS: PANTOPRAZOLE 40 MG VIAL IV SCH (09:59)
[2017-09-22] MEDS: CHLORHEXIDINE 0.12% ORAL RINSE 60 ML BOTTLE SWISH/SPIT SCH ×2 (10:04→21:49)
[2017-09-22] MEDS ORDERED: MULTIVITAMIN PEDIATRIC IV SCH (17:00)
[2017-09-22] MEDS ORDERED: TRACE ELEMENTS IV SCH ×2 (17:00→18:00)
[2017-09-22] MEDS ORDERED: [UNRECOGNIZED DRUG - OTHER] IV SCH (17:00)
[2017-09-22] MEDS ORDERED: [UNRECOGNIZED DRUG - OTHER] IV SCH (18:00)
[2017-09-22] MEDS ORDERED: POTASSIUM PHOSPHATE IV SCH (18:00)
[2017-09-22] MEDS ORDERED: MULTIVITAMIN IV SCH (18:00)
[2017-09-22] MEDS: ATORVASTATIN 40 MG TABLET PO SCH (20:11)
[2017-09-23] MEDS: INSULIN REGULAR 100 UNIT/ML SUBCUT SCH ×5 (00:02→23:16)
[2017-09-23] MEDS: fentaNYL INJ 1,250 MCG in SODIUM CHLORIDE 0.9% 225 ML IV PRN ×4 (00:03→21:12)
[2017-09-23] MEDS: metroNIDAZOLE INJ 500 MG in PREMIX 1 EACH IV SCH ×2 (01:10→06:21)
[2017-09-23] MEDS: HEPARIN/NACL 0.9% 2 UNITS/ML 500 ML IV SCH (02:35)
[2017-09-23] MEDS: PROPOFOL 1,000 MG/100 ML BOTTLE IV SCH ×3 (03:25→20:18)
[2017-09-23 04:42] LABS: ABG Base Excess 6.6 MMOL/L (-2.5-2.5); ABG HCO3 30.5 MMOL/L (20-26); ABG Oxygen Saturation 99.2 % (95-100); ABG PCO2 53.5 MM HG (35-48); ABG PH 7.394 (7.35-7.45); ABG TCO2 30.3 MMOL/L (23-27)
[2017-09-23 04:55] LABS: Basophils # 0.1 10*3/uL (0.0-0.2); Basophils % 0.2 % (0.0-0.8); Eosinophils # 0.7 10*3/uL (0.0-0.87); Eosinophils % 3.6 % (0.00-10.9); Hematocrit 26.6 VOL% (42.0-52.0); Hemoglobin 8.3 GM/DL (14.0-18.0); Immature Granulocytes % 2.9 %; Lymphocytes % 9.8 % (21.2-54.2); Mean Corpuscular HGB Conc 31.2 GM/DL (32-36); Mean Corpuscular Hemoglobin 31 PG (27-34); Mean Corpuscular Volume 98.5 FL (87-102); Mean Platelet Volume 11.3 FL (9.6-12.0); Monocytes % 4.6 % (1.7-12.7); NRBC # 0.87 10*3/uL; Neutrophils # 16.3 10*3/uL (1.4-7.4); Neutrophils % 78.9 % (38.7-73.9); Platelet Count 265 T/CUMM (130-400); Red Cell Distribution Width 14.6 % (9.3-17.3); White Blood Count 20.7 T/CUMM (4-12)
[2017-09-23] MEDS: PIPERACILLIN/TAZOBACTAM 3,375 MG in SODIUM CHLORIDE 0.9% 100 ML IV SCH (05:13)
[2017-09-23 05:24] LABS: Calcium 7.2 MG/DL (8.5-10.1); Osmolality,Calculated 295.7 MOS/KG (273-304); Potassium 3.5 MMOL/L (3.5-5.1)
[2017-09-23 05:41] LABS: Band Neutrophils 2 % (0-10); Eosinophils 2 % (0-10); Lymphocytes 11 % (20-55); Nucleated Red Blood Cells 7 (0-5); Segmented Neutrophils 82 % (50-85); Total Cells Counted 100
[2017-09-23 05:43] LABS: Hypochromasia 1+; Polychromasia Slight
[2017-09-23 05:44] LABS: Microcytosis 1+; Platelet Estimate Adequate
[2017-09-23] MEDS: ALBUTEROL/IPRATROPIUM 3 ML NEB RESP TX SCH ×3 (07:46→19:36)
[2017-09-23] MEDS: FUROSEMIDE 40 MG/4 ML VIAL IV SCH ×2 (08:09→15:52)
[2017-09-23] MEDS: POTASSIUM CHLORIDE 20 MEQ TABLET PO PRN ×2 (08:18→09:38)
[2017-09-23] MEDS: PANTOPRAZOLE 40 MG VIAL IV SCH (08:18)
[2017-09-23] MEDS: DOCUSATE SODIUM 100 MG/10 ML UDCUP PO SCH (08:18)
[2017-09-23] MEDS: CHLORHEXIDINE 0.12% ORAL RINSE 60 ML BOTTLE SWISH/SPIT SCH ×2 (08:19→21:01)
[2017-09-23] MEDS: ASPIRIN CHEW 81 MG TABLET PO SCH (08:19)
[2017-09-23] MEDS: METOPROLOL TARTRATE 25 MG TABLET PO SCH ×2 (08:19→21:01)
[2017-09-23] MEDS: FERROUS SULFATE 325 MG TABLET PO SCH (08:19)
[2017-09-23] MEDS ORDERED: AMIODARONE 150 MG/3 ML VIAL ONE (08:29)
[2017-09-23] MEDS ORDERED: DILTIAZEM 50 MG/10 ML VIAL IV ONE (08:32)
[2017-09-23] MEDS ORDERED: AMIODARONE INJ 150 MG in DEXTROSE 5% 100 ML IV ONE (08:33)
[2017-09-23] MEDS ORDERED: AMIODARONE INJ 450 MG in DEXTROSE 5% 241 ML IV SCH (09:00)
[2017-09-23 10:05] LABS: Apearance,Urine CLEAR (Clear); Bilirubin,Urine Negative (Negative); Blood, Urine Small mg/dL (Negative); Glucose,Urine (UA) Negative (Negative); Ketones,Urine Negative (Negative); Nitrite,Urine Negative (Negative); Protein,Urine Negative; RBC,Urine 8 /HPF (0-4); Urine Color Straw (Yellow); Urine Specific Gravity 1.006 (1.001-1.035); Urine Urobilinogen < 2.0 EU/DL (0.2-1.0); WBC,Urine 1 /HPF (0-6)
[2017-09-23] MEDS: MEROPENEM 1,000 MG in SYRINGE 1 EACH IV SCH ×2 (10:35→18:12)
[2017-09-23] MEDS: MORPHINE 4 MG/1 ML VIAL IV PRN ×2 (12:03→14:57)
[2017-09-23] MEDS: oxyCODONE/ACETAMINOPHEN 5-325 MG TABLET PO PRN (12:04)
[2017-09-23] MEDS: MICAFUNGIN 100 MG in SODIUM CHLORIDE 0.9% 100 ML IV SCH (12:16)
[2017-09-23] MEDS: VANCOMYCIN INJ 1,500 MG in SODIUM CHLORIDE 0.9% 500 ML IV SCH ×2 (12:17→18:11)
[2017-09-23] MEDS: TRACE ELEMENTS IV SCH (17:31)
[2017-09-23] MEDS: MULTIVITAMIN IV SCH (17:31)
[2017-09-23] MEDS: [UNRECOGNIZED DRUG - OTHER] IV SCH (17:31)
[2017-09-23] MEDS: POTASSIUM PHOSPHATE IV SCH (17:31)
[2017-09-23] MEDS: AMIODARONE INJ 450 MG in DEXTROSE 5% 241 ML IV SCH (18:18)
[2017-09-23] MEDS: ATORVASTATIN 40 MG TABLET PO SCH (21:01)
[2017-09-24] MEDS: ALBUTEROL/IPRATROPIUM 3 ML NEB RESP TX SCH ×4 (00:32→18:52)
[2017-09-24] MEDS: PROPOFOL 1,000 MG/100 ML BOTTLE IV SCH ×8 (01:17→23:39)
[2017-09-24] MEDS: MEROPENEM 1,000 MG in SYRINGE 1 EACH IV SCH ×3 (02:21→18:08)
[2017-09-24] MEDS: VANCOMYCIN INJ 1,500 MG in SODIUM CHLORIDE 0.9% 500 ML IV SCH ×3 (02:22→18:22)
[2017-09-24] MEDS: HEPARIN/NACL 0.9% 2 UNITS/ML 500 ML IV SCH (02:22)
[2017-09-24] MEDS: fentaNYL INJ 1,250 MCG in SODIUM CHLORIDE 0.9% 225 ML IV PRN ×2 (03:40→09:01)
[2017-09-24 04:30] LABS: Basophils # 0.1 10*3/uL (0.0-0.2); Basophils % 0.3 % (0.0-0.8); Eosinophils # 0.4 10*3/uL (0.0-0.87); Eosinophils % 2.2 % (0.00-10.9); Hematocrit 25.5 VOL% (42.0-52.0); Hemoglobin 8.2 GM/DL (14.0-18.0); Immature Granulocytes % 1.8 %; Immature Granulocytes Absolute 0.35 #; Lymphocytes # 2.4 10*3/uL (1.4-4.0); Lymphocytes % 11.9 % (21.2-54.2); Mean Corpuscular HGB Conc 32.2 GM/DL (32-36); Mean Corpuscular Hemoglobin 31 PG (27-34); Mean Corpuscular Volume 95.9 FL (87-102); Mean Platelet Volume 11.6 FL (9.6-12.0); Monocytes % 5.2 % (1.7-12.7); NRBC # 1.06 10*3/uL; Neutrophils # 15.7 10*3/uL (1.4-7.4); Neutrophils % 78.6 % (38.7-73.9); Platelet Count 298 T/CUMM (130-400); Red Blood Count 2.66 MC/CUMM (3.8-5.5); Red Cell Distribution Width 14.3 % (9.3-17.3); White Blood Count 19.9 T/CUMM (4-12)
[2017-09-24 04:31] LABS: ABG Base Excess 8.3 MMOL/L (-2.5-2.5); ABG HCO3 32.1 MMOL/L (20-26); ABG Oxygen Saturation 97.4 % (95-100); ABG PCO2 56.2 MM HG (35-48); ABG PH 7.399 (7.35-7.45); ABG PO2 94.2 MM HG (80-95); ABG TCO2 31.8 MMOL/L (23-27)
[2017-09-24 04:51] LABS: Calcium 7.2 MG/DL (8.5-10.1); Osmolality,Calculated 294.7 MOS/KG (273-304); Potassium 3.7 MMOL/L (3.5-5.1)
[2017-09-24] MEDS: INSULIN REGULAR 100 UNIT/ML SUBCUT SCH ×5 (05:49→23:12)
[2017-09-24 05:53] LABS: Band Neutrophils 3 % (0-10); Eosinophils 2 % (0-10); Lymphocytes 9 % (20-55); Nucleated Red Blood Cells 5 (0-5); Platelet Estimate Normal; Segmented Neutrophils 81 % (50-85); Total Cells Counted 100
[2017-09-24] MEDS: POTASSIUM CHLORIDE 20 MEQ/15 ML UDCUP PER TUBE PRN (08:28)
[2017-09-24] MEDS: FERROUS SULFATE 325 MG TABLET PO SCH (08:28)
[2017-09-24] MEDS: DOCUSATE SODIUM 100 MG/10 ML UDCUP PO SCH (08:28)
[2017-09-24] MEDS: ASPIRIN CHEW 81 MG TABLET PO SCH (08:29)
[2017-09-24] MEDS: PANTOPRAZOLE 40 MG VIAL IV SCH (08:29)
[2017-09-24] MEDS: FUROSEMIDE 40 MG/4 ML VIAL IV SCH ×2 (08:29→15:21)
[2017-09-24] MEDS: CLORAZEPATE 7.5 MG TABLET PO PRN ×3 (08:29→20:01)
[2017-09-24] MEDS: METOPROLOL TARTRATE 25 MG TABLET PO SCH ×2 (08:29→20:00)
[2017-09-24] MEDS: CHLORHEXIDINE 0.12% ORAL RINSE 60 ML BOTTLE SWISH/SPIT SCH ×2 (08:30→20:01)
[2017-09-24] MEDS: SERTRALINE 25 MG TABLET PO SCH ×2 (09:39→20:00)
[2017-09-24] MEDS: AMIODARONE 200 MG TABLET PO SCH ×2 (09:39→20:00)
[2017-09-24] MEDS: AMIODARONE INJ 450 MG in DEXTROSE 5% 241 ML IV SCH (09:53)
[2017-09-24] MEDS: MICAFUNGIN 100 MG in SODIUM CHLORIDE 0.9% 100 ML IV SCH (11:49)
[2017-09-24] MEDS: MORPHINE 4 MG/1 ML VIAL IV PRN ×5 (13:33→22:43)
[2017-09-24] MEDS: DILTIAZEM INJ 100 MG in SODIUM CHLORIDE 0.9% 100 ML IV SCH (15:29)
[2017-09-24] MEDS: [UNRECOGNIZED DRUG - OTHER] IV SCH (18:00)
[2017-09-24] MEDS: MULTIVITAMIN IV SCH (18:00)
[2017-09-24] MEDS: TRACE ELEMENTS IV SCH (18:00)
[2017-09-24] MEDS: POTASSIUM PHOSPHATE IV SCH (18:00)
[2017-09-24] MEDS: ATORVASTATIN 40 MG TABLET PO SCH (20:00)
[2017-09-24] MEDS: oxyCODONE/ACETAMINOPHEN 5-325 MG TABLET PO PRN (20:01)
[2017-09-25] MEDS: ALBUTEROL/IPRATROPIUM 3 ML NEB RESP TX SCH ×4 (00:36→19:11)
[2017-09-25] MEDS: HEPARIN/NACL 0.9% 2 UNITS/ML 500 ML IV SCH (01:51)
[2017-09-25] MEDS: VANCOMYCIN INJ 1,500 MG in SODIUM CHLORIDE 0.9% 500 ML IV SCH ×3 (02:15→18:12)
[2017-09-25] MEDS: MEROPENEM 1,000 MG in SYRINGE 1 EACH IV SCH ×3 (02:15→18:22)
[2017-09-25] MEDS: MORPHINE 4 MG/1 ML VIAL IV PRN ×4 (03:58→23:28)
[2017-09-25] MEDS: CLORAZEPATE 7.5 MG TABLET PO PRN ×2 (03:59→18:20)
[2017-09-25] MEDS: oxyCODONE/ACETAMINOPHEN 5-325 MG TABLET PO PRN (03:59)
[2017-09-25 04:39] LABS: ABG Base Excess 9.3 MMOL/L (-2.5-2.5); ABG HCO3 33.1 MMOL/L (20-26); ABG Oxygen Saturation 99.2 % (95-100); ABG PCO2 47.1 MM HG (35-48); ABG PH 7.468 (7.35-7.45); ABG TCO2 31.3 MMOL/L (23-27)
[2017-09-25] MEDS: PROPOFOL 1,000 MG/100 ML BOTTLE IV SCH ×4 (04:41→20:55)
[2017-09-25 04:43] LABS: Basophils # 0.1 10*3/uL (0.0-0.2); Basophils % 0.3 % (0.0-0.8); Eosinophils # 0.4 10*3/uL (0.0-0.87); Hematocrit 25.7 VOL% (42.0-52.0); Hemoglobin 8.3 GM/DL (14.0-18.0); Immature Granulocytes % 1.3 %; Immature Granulocytes Absolute 0.24 #; Lymphocytes # 1.7 10*3/uL (1.4-4.0); Lymphocytes % 8.8 % (21.2-54.2); Mean Corpuscular HGB Conc 32.3 GM/DL (32-36); Mean Corpuscular Hemoglobin 31 PG (27-34); Mean Corpuscular Volume 95.5 FL (87-102); Mean Platelet Volume 12.1 FL (9.6-12.0); Monocytes # 1.1 10*3/uL (0.11-0.8); Monocytes % 5.7 % (1.7-12.7); NRBC # 0.45 10*3/uL; Neutrophils # 15.5 10*3/uL (1.4-7.4); Neutrophils % 81.9 % (38.7-73.9); Platelet Count 343 T/CUMM (130-400); Red Blood Count 2.69 MC/CUMM (3.8-5.5); Red Cell Distribution Width 14.3 % (9.3-17.3)
[2017-09-25 05:13] LABS: Osmolality,Calculated 297.6 MOS/KG (273-304); Potassium 3.7 MMOL/L (3.5-5.1)
[2017-09-25] MEDS: INSULIN REGULAR 100 UNIT/ML SUBCUT SCH ×4 (05:32→23:28)
[2017-09-25 06:31] LABS: Eosinophils 4 % (0-10); Lymphocytes 7 % (20-55); Nucleated Red Blood Cells 4 (0-5); Segmented Neutrophils 87 % (50-85); Total Cells Counted 100
[2017-09-25 06:41] LABS: Hypochromasia 2+; Macrocytosis 1+; Platelet Estimate Adequate; Polychromasia Slight; Target Cells Slight
[2017-09-25] MEDS: FERROUS SULFATE 325 MG TABLET PO SCH (08:06)
[2017-09-25] MEDS: ASPIRIN CHEW 81 MG TABLET PO SCH (08:06)
[2017-09-25] MEDS: METOPROLOL TARTRATE 25 MG TABLET PO SCH (08:06)
[2017-09-25] MEDS: FUROSEMIDE 40 MG/4 ML VIAL IV SCH ×2 (08:06→15:23)
[2017-09-25] MEDS: DOCUSATE SODIUM 100 MG/10 ML UDCUP PO SCH (08:06)
[2017-09-25] MEDS: POTASSIUM CHLORIDE 20 MEQ/15 ML UDCUP PER TUBE PRN (08:06)
[2017-09-25] MEDS: SERTRALINE 25 MG TABLET PO SCH ×2 (08:06→20:54)
[2017-09-25] MEDS: AMIODARONE 200 MG TABLET PO SCH ×2 (08:06→20:54)
[2017-09-25] MEDS: PANTOPRAZOLE 40 MG VIAL IV SCH (08:07)
[2017-09-25] MEDS: CHLORHEXIDINE 0.12% ORAL RINSE 60 ML BOTTLE SWISH/SPIT SCH ×2 (08:07→20:55)
[2017-09-25] MEDS: MICAFUNGIN 100 MG in SODIUM CHLORIDE 0.9% 100 ML IV SCH (11:11)
[2017-09-25 11:45] LABS: ABG Base Excess 9.8 MMOL/L (-2.5-2.5); ABG HCO3 33.5 MMOL/L (20-26); ABG PCO2 42.9 MM HG (35-48); ABG PH 7.506 (7.35-7.45); ABG TCO2 31.2 MMOL/L (23-27)
[2017-09-25 11:46] LABS: ABG Oxygen Saturation 96.5 % (95-100)
[2017-09-25] MEDS: DILTIAZEM INJ 100 MG in SODIUM CHLORIDE 0.9% 100 ML IV SCH (14:59)
[2017-09-25] MEDS: CAPTOPRIL 6.25 MG TABLET PO SCH ×2 (15:23→20:54)
[2017-09-25] MEDS: [UNRECOGNIZED DRUG - OTHER] IV SCH (18:02)
[2017-09-25] MEDS: MULTIVITAMIN IV SCH (18:02)
[2017-09-25] MEDS: TRACE ELEMENTS IV SCH (18:02)
[2017-09-25] MEDS: POTASSIUM PHOSPHATE IV SCH (18:02)
[2017-09-25] MEDS: ACETAMINOPHEN 325 MG TABLET PO PRN (18:20)
[2017-09-25] MEDS: ATORVASTATIN 40 MG TABLET PO SCH (20:54)
[2017-09-25] MEDS: CARVEDILOL 6.25 MG TABLET PO SCH (20:54)
[2017-09-26] MEDS: ALBUTEROL/IPRATROPIUM 3 ML NEB RESP TX SCH ×4 (01:10→19:17)
[2017-09-26] MEDS: PROPOFOL 1,000 MG/100 ML BOTTLE IV SCH ×6 (01:12→23:19)
[2017-09-26] MEDS: HEPARIN/NACL 0.9% 2 UNITS/ML 500 ML IV SCH (02:01)
[2017-09-26] MEDS: MEROPENEM 1,000 MG in SYRINGE 1 EACH IV SCH ×2 (02:26→10:29)
[2017-09-26 02:29] LABS: Basophils % 0.3 % (0.0-0.8); Eosinophils # 0.4 10*3/uL (0.0-0.87); Eosinophils % 2.9 % (0.00-10.9); Hematocrit 28.2 VOL% (42.0-52.0); Immature Granulocytes % 1.3 %; Lymphocytes # 1.7 10*3/uL (1.4-4.0); Lymphocytes % 10.9 % (21.2-54.2); Mean Corpuscular HGB Conc 31.9 GM/DL (32-36); Mean Corpuscular Hemoglobin 30 PG (27-34); Mean Corpuscular Volume 95.3 FL (87-102); Mean Platelet Volume 12.2 FL (9.6-12.0); Monocytes # 0.9 10*3/uL (0.11-0.8); Monocytes % 5.7 % (1.7-12.7); NRBC # 0.18 10*3/uL; Neutrophils # 12.1 10*3/uL (1.4-7.4); Neutrophils % 78.9 % (38.7-73.9); Platelet Count 408 T/CUMM (130-400); Red Blood Count 2.96 MC/CUMM (3.8-5.5); Red Cell Distribution Width 14.4 % (9.3-17.3); White Blood Count 15.3 T/CUMM (4-12)
[2017-09-26 02:48] LABS: Calcium 7.5 MG/DL (8.5-10.1); Osmolality,Calculated 291.8 MOS/KG (273-304); Potassium 3.5 MMOL/L (3.5-5.1)
[2017-09-26 02:49] LABS: Calcium 7.3 MG/DL (8.5-10.1); Potassium 3.4 MMOL/L (3.5-5.1)
[2017-09-26] MEDS: VANCOMYCIN INJ 1,500 MG in SODIUM CHLORIDE 0.9% 500 ML IV SCH ×2 (03:09→12:30)
[2017-09-26] MEDS: POTASSIUM CHLORIDE 20 MEQ/15 ML UDCUP PER TUBE PRN (03:09)
[2017-09-26] MEDS: MORPHINE 4 MG/1 ML VIAL IV PRN ×4 (03:13→20:40)
[2017-09-26 04:58] LABS: ABG Base Excess 8.6 MMOL/L (-2.5-2.5); ABG HCO3 32.4 MMOL/L (20-26); ABG PCO2 44.8 MM HG (35-48); ABG PH 7.478 (7.35-7.45); ABG TCO2 29.6 MMOL/L (23-27); Allen Test Positive; Pt O2 Delivery Device Ventilator
[2017-09-26] MEDS: INSULIN REGULAR 100 UNIT/ML SUBCUT SCH ×4 (05:14→23:24)
[2017-09-26 05:21] LABS: Hypochromasia 1+; Microcytosis 1+; Polychromasia Slight; Spherocytes Few
[2017-09-26 05:22] LABS: Platelet Estimate Increased; Target Cells Slight
[2017-09-26 07:40] LABS: ABG Base Excess 6.5 MMOL/L (-2.5-2.5); ABG HCO3 30.3 MMOL/L (20-26); ABG Oxygen Saturation 95.9 % (95-100); ABG PCO2 49.5 MM HG (35-48); ABG PH 7.419 (7.35-7.45); ABG PO2 80.1 MM HG (80-95); ABG TCO2 29.2 MMOL/L (23-27)
[2017-09-26] MEDS: DOCUSATE SODIUM 100 MG/10 ML UDCUP PO SCH (10:01)
[2017-09-26] MEDS: SERTRALINE 25 MG TABLET PO SCH (10:02)
[2017-09-26] MEDS: FERROUS SULFATE 325 MG TABLET PO SCH (10:02)
[2017-09-26] MEDS: ASPIRIN CHEW 81 MG TABLET PO SCH ×2 (10:25→10:41)
[2017-09-26] MEDS: AMIODARONE 200 MG TABLET PO SCH ×2 (10:26→20:24)
[2017-09-26] MEDS: CARVEDILOL 6.25 MG TABLET PO SCH ×2 (10:26→16:58)
[2017-09-26] MEDS: PANTOPRAZOLE 40 MG VIAL IV SCH (10:27)
[2017-09-26] MEDS: FUROSEMIDE 40 MG/4 ML VIAL IV SCH ×2 (10:31→16:07)
[2017-09-26] MEDS: CAPTOPRIL 6.25 MG TABLET PO SCH ×2 (10:39→20:24)
[2017-09-26] MEDS: CHLORHEXIDINE 0.12% ORAL RINSE 60 ML BOTTLE SWISH/SPIT SCH ×2 (10:39→20:24)
[2017-09-26] MEDS: MICAFUNGIN 100 MG in SODIUM CHLORIDE 0.9% 100 ML IV SCH (11:40)
[2017-09-26] MEDS: PIPERACILLIN/TAZOBACTAM 3,375 MG in SODIUM CHLORIDE 0.9% 100 ML IV SCH ×2 (14:15→20:39)
[2017-09-26] MEDS: DILTIAZEM INJ 100 MG in SODIUM CHLORIDE 0.9% 100 ML IV SCH (15:42)
[2017-09-26] MEDS ORDERED: ROCURONIUM 100 MG/10 ML VIAL IV ONE (15:43)
[2017-09-26] MEDS ORDERED: MIDAZOLAM 10 MG/2 ML VIAL ONE (15:43)
[2017-09-26] MEDS ORDERED: SEVOFLURANE 1 UNIT/15 MINUTE INH ONE (15:43)
[2017-09-26] MEDS ORDERED: MIDAZOLAM 2 MG/2 ML VIAL ONE (15:43)
[2017-09-26] MEDS: [UNRECOGNIZED DRUG - OTHER] IV SCH (18:45)
[2017-09-26] MEDS: TRACE ELEMENTS IV SCH (18:45)
[2017-09-26] MEDS: POTASSIUM PHOSPHATE IV SCH (18:45)
[2017-09-26] MEDS: MULTIVITAMIN IV SCH (18:45)
[2017-09-26] MEDS: ATORVASTATIN 40 MG TABLET PO SCH (20:24)
[2017-09-26] MEDS: SERTRALINE 50 MG TABLET PO SCH (20:24)
[2017-09-26] MEDS: CLORAZEPATE 7.5 MG TABLET PO PRN (20:54)
[2017-09-27] MEDS: ACETAMINOPHEN 325 MG TABLET PO PRN (00:12)
[2017-09-27] MEDS: ALBUTEROL/IPRATROPIUM 3 ML NEB RESP TX SCH ×4 (01:17→19:58)
[2017-09-27] MEDS: HEPARIN/NACL 0.9% 2 UNITS/ML 500 ML IV SCH (01:50)
[2017-09-27] MEDS: MORPHINE 4 MG/1 ML VIAL IV PRN (03:04)
[2017-09-27] MEDS: PROPOFOL 1,000 MG/100 ML BOTTLE IV SCH ×7 (03:05→22:52)
[2017-09-27 04:54] LABS: Basophils % 0.2 % (0.0-0.8); Eosinophils # 0.6 10*3/uL (0.0-0.87); Eosinophils % 3.9 % (0.00-10.9); Hemoglobin 8.8 GM/DL (14.0-18.0); Immature Granulocytes % 0.8 %; Immature Granulocytes Absolute 0.12 #; Lymphocytes # 1.6 10*3/uL (1.4-4.0); Lymphocytes % 10.6 % (21.2-54.2); Mean Corpuscular HGB Conc 33.8 GM/DL (32-36); Mean Corpuscular Hemoglobin 31 PG (27-34); Mean Corpuscular Volume 90.6 FL (87-102); Monocytes % 6.5 % (1.7-12.7); NRBC # 0.05 10*3/uL; Neutrophils # 11.6 10*3/uL (1.4-7.4); Platelet Count 456 T/CUMM (130-400); Red Blood Count 2.87 MC/CUMM (3.8-5.5); Red Cell Distribution Width 14.4 % (9.3-17.3); White Blood Count 14.9 T/CUMM (4-12)
[2017-09-27] MEDS: PIPERACILLIN/TAZOBACTAM 3,375 MG in SODIUM CHLORIDE 0.9% 100 ML IV SCH ×3 (04:58→21:26)
[2017-09-27] MEDS: INSULIN REGULAR 100 UNIT/ML SUBCUT SCH ×4 (05:02→23:08)
[2017-09-27 05:25] LABS: Calcium 6.9 MG/DL (8.5-10.1); Osmolality,Calculated 285.3 MOS/KG (273-304); Potassium 3.5 MMOL/L (3.5-5.1)
[2017-09-27] MEDS ORDERED: AMIODARONE 150 MG/3 ML VIAL ONE (08:21)
[2017-09-27] MEDS ORDERED: DILTIAZEM 50 MG/10 ML VIAL IV ONE (08:27)
[2017-09-27] MEDS ORDERED: AMIODARONE INJ 50 MG in DEXTROSE 5% 100 ML IV ONE (08:29)
[2017-09-27] MEDS ORDERED: DILTIAZEM INJ 100 MG in SODIUM CHLORIDE 0.9% 100 ML IV SCH (08:30)
[2017-09-27] MEDS: SERTRALINE 50 MG TABLET PO SCH ×2 (08:48→21:19)
[2017-09-27] MEDS: FERROUS SULFATE 325 MG TABLET PO SCH (08:48)
[2017-09-27] MEDS: CAPTOPRIL 6.25 MG TABLET PO SCH ×2 (08:48→21:17)
[2017-09-27] MEDS: ASPIRIN CHEW 81 MG TABLET PO SCH (08:48)
[2017-09-27] MEDS: CLORAZEPATE 7.5 MG TABLET PO PRN (08:48)
[2017-09-27] MEDS: PANTOPRAZOLE 40 MG VIAL IV SCH (08:48)
[2017-09-27] MEDS: DOCUSATE SODIUM 100 MG/10 ML UDCUP PO SCH (08:48)
[2017-09-27] MEDS: CARVEDILOL 6.25 MG TABLET PO SCH ×2 (08:48→16:56)
[2017-09-27] MEDS: FUROSEMIDE 40 MG/4 ML VIAL IV SCH ×2 (08:51→17:15)
[2017-09-27] MEDS: CHLORHEXIDINE 0.12% ORAL RINSE 60 ML BOTTLE SWISH/SPIT SCH ×2 (09:05→21:19)
[2017-09-27] MEDS: DILTIAZEM INJ 100 MG in SODIUM CHLORIDE 0.9% 100 ML IV SCH ×2 (09:23→16:54)
[2017-09-27] MEDS: AMIODARONE INJ 450 MG in DEXTROSE 5% 241 ML IV SCH (12:16)
[2017-09-27] MEDS: HALOPERIDOL 5 MG/ML AMP IV SCH ×2 (12:19→21:19)
[2017-09-27] MEDS: MICAFUNGIN 100 MG in SODIUM CHLORIDE 0.9% 100 ML IV SCH (13:02)
[2017-09-27] MEDS: [UNRECOGNIZED DRUG - OTHER] IV SCH (17:17)
[2017-09-27] MEDS: TRACE ELEMENTS IV SCH (17:17)
[2017-09-27] MEDS: MULTIVITAMIN IV SCH (17:17)
[2017-09-27] MEDS: POTASSIUM PHOSPHATE IV SCH (17:17)
[2017-09-27] MEDS ORDERED: AMIODARONE INJ 450 MG in DEXTROSE 5% 241 ML IV SCH (18:30)
[2017-09-27] MEDS: ATORVASTATIN 40 MG TABLET PO SCH (21:19)
[2017-09-28] MEDS: ALBUTEROL/IPRATROPIUM 3 ML NEB RESP TX SCH ×4 (01:09→19:39)
[2017-09-28] MEDS: PROPOFOL 1,000 MG/100 ML BOTTLE IV SCH ×2 (03:01→06:19)
[2017-09-28] MEDS: HEPARIN/NACL 0.9% 2 UNITS/ML 500 ML IV SCH (03:46)
[2017-09-28] MEDS: INSULIN REGULAR 100 UNIT/ML SUBCUT SCH ×3 (05:05→17:53)
[2017-09-28] MEDS: PIPERACILLIN/TAZOBACTAM 3,375 MG in SODIUM CHLORIDE 0.9% 100 ML IV SCH ×3 (05:16→21:34)
[2017-09-28 05:42] LABS: Basophils % 0.2 % (0.0-0.8); Eosinophils # 0.6 10*3/uL (0.0-0.87); Eosinophils % 4.6 % (0.00-10.9); Hemoglobin 8.7 GM/DL (14.0-18.0); Immature Granulocytes % 0.8 %; Lymphocytes # 1.4 10*3/uL (1.4-4.0); Lymphocytes % 11.3 % (21.2-54.2); Mean Corpuscular HGB Conc 33.5 GM/DL (32-36); Mean Corpuscular Hemoglobin 30 PG (27-34); Mean Corpuscular Volume 90.6 FL (87-102); Mean Platelet Volume 12.1 FL (9.6-12.0); Monocytes # 0.9 10*3/uL (0.11-0.8); Monocytes % 6.9 % (1.7-12.7); NRBC # 0.02 10*3/uL; Neutrophils # 9.4 10*3/uL (1.4-7.4); Neutrophils % 76.2 % (38.7-73.9); Platelet Count 531 T/CUMM (130-400); Red Blood Count 2.87 MC/CUMM (3.8-5.5); White Blood Count 12.3 T/CUMM (4-12)
[2017-09-28 05:57] LABS: Calcium 7.4 MG/DL (8.5-10.1); Osmolality,Calculated 283.4 MOS/KG (273-304); Potassium 3.3 MMOL/L (3.5-5.1)
[2017-09-28 07:32] LABS: ABG Base Excess 6.8 MMOL/L (-2.5-2.5); ABG HCO3 30.6 MMOL/L (20-26); ABG Oxygen Saturation 99.1 % (95-100); ABG PCO2 42.6 MM HG (35-48); ABG PH 7.471 (7.35-7.45); ABG TCO2 28.5 MMOL/L (23-27)
[2017-09-28 08:06] LABS: ABG Base Excess 5.4 MMOL/L (-2.5-2.5); ABG HCO3 31.3 MMOL/L (20-26); ABG Oxygen Saturation 93.3 % (95-100); ABG PCO2 52.5 MM HG (35-48); ABG PH 7.393 (7.35-7.45); ABG PO2 75.4 MM HG (80-95); ABG TCO2 32.9 MMOL/L (23-27)
[2017-09-28] MEDS: SERTRALINE 50 MG TABLET PO SCH ×2 (08:30→21:27)
[2017-09-28] MEDS: CARVEDILOL 6.25 MG TABLET PO SCH ×2 (08:30→17:27)
[2017-09-28] MEDS: DOCUSATE SODIUM 100 MG/10 ML UDCUP PO SCH (08:30)
[2017-09-28] MEDS: PANTOPRAZOLE 40 MG VIAL IV SCH (08:30)
[2017-09-28] MEDS: HALOPERIDOL 5 MG/ML AMP IV SCH ×2 (08:30→21:31)
[2017-09-28] MEDS: ASPIRIN CHEW 81 MG TABLET PO SCH (08:30)
[2017-09-28] MEDS: CAPTOPRIL 6.25 MG TABLET PO SCH ×2 (08:30→21:26)
[2017-09-28] MEDS: FERROUS SULFATE 325 MG TABLET PO SCH (08:30)
[2017-09-28] MEDS: POTASSIUM CHLORIDE 20 MEQ/15 ML UDCUP PER TUBE PRN ×2 (08:30→12:12)
[2017-09-28] MEDS: FUROSEMIDE 40 MG/4 ML VIAL IV SCH ×2 (08:31→15:05)
[2017-09-28] MEDS: CHLORHEXIDINE 0.12% ORAL RINSE 60 ML BOTTLE SWISH/SPIT SCH ×2 (08:31→21:29)
[2017-09-28 08:51] LABS: ABG Base Excess 5.4 MMOL/L (-2.5-2.5); ABG HCO3 29.5 MMOL/L (20-26); ABG Oxygen Saturation 97.7 % (95-100); ABG PCO2 41.6 MM HG (35-48); ABG PH 7.469 (7.35-7.45); ABG PO2 106.7 MM HG (80-95); ABG TCO2 30.8 MMOL/L (23-27)
[2017-09-28] MEDS: MICAFUNGIN 100 MG in SODIUM CHLORIDE 0.9% 100 ML IV SCH (11:55)
[2017-09-28] MEDS: AMIODARONE 200 MG TABLET PO SCH ×2 (12:12→21:27)
[2017-09-28] MEDS: AMIODARONE INJ 450 MG in DEXTROSE 5% 241 ML IV SCH (13:22)
[2017-09-28] MEDS: POTASSIUM CHLORIDE 20 MEQ TABLET PO PRN (15:01)
[2017-09-28] MEDS: oxyCODONE/ACETAMINOPHEN 5-325 MG TABLET PO PRN ×2 (15:01→20:52)
[2017-09-28] MEDS: POTASSIUM PHOSPHATE IV SCH (17:35)
[2017-09-28] MEDS: TRACE ELEMENTS IV SCH (17:35)
[2017-09-28] MEDS: [UNRECOGNIZED DRUG - OTHER] IV SCH (17:35)
[2017-09-28] MEDS: MULTIVITAMIN IV SCH (17:35)
[2017-09-28] MEDS: ATORVASTATIN 40 MG TABLET PO SCH (21:27)
[2017-09-29] MEDS: INSULIN REGULAR 100 UNIT/ML SUBCUT SCH ×4 (00:27→17:24)
[2017-09-29] MEDS: AMIODARONE INJ 450 MG in DEXTROSE 5% 241 ML IV SCH (00:27)
[2017-09-29] MEDS: ALBUTEROL/IPRATROPIUM 3 ML NEB RESP TX SCH ×4 (01:48→18:59)
[2017-09-29 04:40] LABS: ABG Base Excess 5.3 MMOL/L (-2.5-2.5); ABG PCO2 39.1 MM HG (35-48); ABG PH 7.488 (7.35-7.45); ABG PO2 94.9 MM HG (80-95); ABG TCO2 30.2 MMOL/L (23-27); Allen Test Positive
[2017-09-29] MEDS: PIPERACILLIN/TAZOBACTAM 3,375 MG in SODIUM CHLORIDE 0.9% 100 ML IV SCH ×3 (04:51→20:33)
[2017-09-29 05:30] LABS: Basophils % 0.2 % (0.0-0.8); Eosinophils # 0.4 10*3/uL (0.0-0.87); Eosinophils % 3.2 % (0.00-10.9); Hematocrit 28.7 VOL% (42.0-52.0); Hemoglobin 9.5 GM/DL (14.0-18.0); Immature Granulocytes % 0.6 %; Immature Granulocytes Absolute 0.08 #; Lymphocytes # 1.6 10*3/uL (1.4-4.0); Lymphocytes % 11.7 % (21.2-54.2); Mean Corpuscular HGB Conc 33.1 GM/DL (32-36); Mean Corpuscular Hemoglobin 30 PG (27-34); Mean Platelet Volume 12.3 FL (9.6-12.0); Monocytes # 1.1 10*3/uL (0.11-0.8); Monocytes % 8.1 % (1.7-12.7); NRBC # 0.02 10*3/uL; Neutrophils # 10.2 10*3/uL (1.4-7.4); Neutrophils % 76.2 % (38.7-73.9); Platelet Count 679 T/CUMM (130-400); Red Blood Count 3.19 MC/CUMM (3.8-5.5); Red Cell Distribution Width 13.8 % (9.3-17.3); White Blood Count 13.4 T/CUMM (4-12)
[2017-09-29 06:03] LABS: Calcium 7.2 MG/DL (8.5-10.1); Osmolality,Calculated 280.5 MOS/KG (273-304); Potassium 3.8 MMOL/L (3.5-5.1)
[2017-09-29] MEDS ORDERED: MAGNESIUM SULF RIDER 4 GM in PREMIX 1 EACH IV PRN (08:46)
[2017-09-29] MEDS ORDERED: MAGNESIUM HYDROXIDE SUSP 30 ML UDCUP PO PRN (08:46)
[2017-09-29] MEDS ORDERED: ZALEPLON 5 MG CAPSULE PO PRN ×2 (08:46→16:08)
[2017-09-29] MEDS ORDERED: DEXTROSE 50% 25 GM/50 ML VIAL IV PRN ×2 (08:46→16:13)
[2017-09-29] MEDS ORDERED: GLUCAGON 1 MG VIAL IM PRN ×2 (08:46→16:13)
[2017-09-29] MEDS ORDERED: ONDANSETRON 4 MG/2 ML VIAL IV PRN (08:46)
[2017-09-29] MEDS ORDERED: MAGNESIUM SULF RIDER 2 GM in PREMIX 1 EACH IV PRN (08:46)
[2017-09-29] MEDS ORDERED: ACETAMINOPHEN 325 MG TABLET PO PRN (08:46)
[2017-09-29] MEDS ORDERED: oxyCODONE/ACETAMINOPHEN 5-325 MG TABLET PO PRN (08:46)
[2017-09-29] MEDS ORDERED: MORPHINE 4 MG/1 ML VIAL IV PRN (08:46)
[2017-09-29] MEDS ORDERED: ALUMINUM/MAGNES/SIMETH MAX STR 30 ML UDCUP PO PRN ×2 (08:46→09:51)
[2017-09-29] MEDS ORDERED: POTASSIUM CHLORIDE 20 MEQ TABLET PO PRN ×2 (08:46→09:47)
[2017-09-29] MEDS: CAPTOPRIL 6.25 MG TABLET PO SCH (08:49)
[2017-09-29] MEDS: SERTRALINE 50 MG TABLET PO SCH ×2 (08:49→20:33)
[2017-09-29] MEDS: PANTOPRAZOLE 40 MG VIAL IV SCH (08:49)
[2017-09-29] MEDS: CARVEDILOL 6.25 MG TABLET PO SCH ×2 (08:49→17:04)
[2017-09-29] MEDS: AMIODARONE 200 MG TABLET PO SCH (08:49)
[2017-09-29] MEDS: ASPIRIN CHEW 81 MG TABLET PO SCH (08:49)
[2017-09-29] MEDS: FERROUS SULFATE 325 MG TABLET PO SCH (08:49)
[2017-09-29] MEDS: POTASSIUM CHLORIDE 20 MEQ TABLET PO PRN (08:49)
[2017-09-29] MEDS: FUROSEMIDE 40 MG/4 ML VIAL IV SCH ×2 (08:50→15:40)
[2017-09-29] MEDS: CHLORHEXIDINE 0.12% ORAL RINSE 60 ML BOTTLE SWISH/SPIT SCH (08:50)
[2017-09-29] MEDS: DOCUSATE SODIUM 100 MG/10 ML UDCUP PO SCH (08:50)
[2017-09-29] MEDS ORDERED: PANTOPRAZOLE 40 MG TABLET PO SCH (09:00)
[2017-09-29] MEDS ORDERED: FERROUS SULFATE 325 MG TABLET PO SCH (09:00)
[2017-09-29] MEDS ORDERED: SODIUM CHLOR 0.45% KCL 20 MEQ 20 MEQ/1,000 ML BAG IV SCH (09:00)
[2017-09-29] MEDS ORDERED: DOCUSATE SODIUM 100 MG CAPSULE PO SCH (09:00)
[2017-09-29] MEDS: ALUMINUM/MAGNES/SIMETH MAX STR 30 ML UDCUP PO PRN (09:18)
[2017-09-29] MEDS: HALOPERIDOL 5 MG/ML AMP IV SCH (09:32)
[2017-09-29] MEDS ORDERED: MORPHINE 10 MG/1 ML VIAL ONE (15:23)
[2017-09-29] MEDS: CAPTOPRIL 12.5 MG TABLET PO SCH ×2 (15:39→20:33)
[2017-09-29] MEDS: MORPHINE 4 MG/1 ML VIAL IV PRN (15:39)
[2017-09-29] MEDS: POTASSIUM PHOSPHATE IV SCH (17:04)
[2017-09-29] MEDS: MULTIVITAMIN IV SCH (17:04)
[2017-09-29] MEDS: [UNRECOGNIZED DRUG - OTHER] IV SCH (17:04)
[2017-09-29] MEDS: TRACE ELEMENTS IV SCH (17:04)
[2017-09-29] MEDS ORDERED: INSULIN LISPRO 100 UNIT/ML SUBCUT SCH (18:00)
[2017-09-29] MEDS: ATORVASTATIN 40 MG TABLET PO SCH (20:33)
[2017-09-29] MEDS ORDERED: AMIODARONE 200 MG TABLET PO SCH (21:00)
[2017-09-30] MEDS: INSULIN REGULAR 100 UNIT/ML SUBCUT SCH ×4 (00:31→19:01)
[2017-09-30] MEDS: ONDANSETRON 4 MG/2 ML VIAL IV PRN ×2 (00:32→23:45)
[2017-09-30] MEDS: ALBUTEROL/IPRATROPIUM 3 ML NEB RESP TX SCH ×4 (01:55→19:13)
[2017-09-30 05:24] LABS: Basophils # 0.1 10*3/uL (0.0-0.2); Basophils % 0.3 % (0.0-0.8); Eosinophils # 0.2 10*3/uL (0.0-0.87); Eosinophils % 0.8 % (0.00-10.9); Hemoglobin 11.1 GM/DL (14.0-18.0); Immature Granulocytes % 0.6 %; Immature Granulocytes Absolute 0.11 #; Lymphocytes # 1.6 10*3/uL (1.4-4.0); Lymphocytes % 8.7 % (21.2-54.2); Mean Corpuscular HGB Conc 33.6 GM/DL (32-36); Mean Corpuscular Hemoglobin 30 PG (27-34); Mean Corpuscular Volume 88.9 FL (87-102); Mean Platelet Volume 11.9 FL (9.6-12.0); Monocytes # 1.3 10*3/uL (0.11-0.8); Monocytes % 7.3 % (1.7-12.7); Neutrophils # 14.8 10*3/uL (1.4-7.4); Neutrophils % 82.3 % (38.7-73.9); Platelet Count 786 T/CUMM (130-400); Red Blood Count 3.71 MC/CUMM (3.8-5.5); Red Cell Distribution Width 13.6 % (9.3-17.3)
[2017-09-30 05:52] LABS: Blood Urea Nitrogen 23 MG/DL (7-18); Calcium 8.2 MG/DL (8.5-10.1); Glucose 152 MG/DL (74-106); Potassium 3.6 MMOL/L (3.5-5.1); Sodium 136 MMOL/L (136-145)
[2017-09-30 05:55] LABS: Alanine Aminotransferase 28 U/L (16-61); Alkaline Phosphatase 146 U/L (45-117); Aspartate Amino Transferase 34 U/L (0-37); Bilirubin,Indirect 0.4 MG/DL (0.0-1.0)
[2017-09-30 05:56] LABS: Albumin 2.3 G/DL (3.4-5.0); Total Protein 6.5 G/DL (6.4-8.3)
[2017-09-30] MEDS: PIPERACILLIN/TAZOBACTAM 3,375 MG in SODIUM CHLORIDE 0.9% 100 ML IV SCH ×2 (06:03→18:14)
[2017-09-30] MEDS ORDERED: CLORAZEPATE 7.5 MG TABLET PO PRN (06:29)
[2017-09-30] MEDS: CARVEDILOL 6.25 MG TABLET PO SCH ×2 (16:48→18:15)
[2017-09-30] MEDS: PANTOPRAZOLE 40 MG VIAL IV SCH (16:49)
[2017-09-30] MEDS: ASPIRIN CHEW 81 MG TABLET PO SCH (16:49)
[2017-09-30] MEDS: SERTRALINE 50 MG TABLET PO SCH ×2 (16:49→22:00)
[2017-09-30] MEDS: CAPTOPRIL 12.5 MG TABLET PO SCH ×2 (16:49→22:01)
[2017-09-30] MEDS ORDERED: DEXTROSE 10% 1,000 ML IV PRN (17:00)
[2017-09-30] MEDS ORDERED: AMINO ACIDS 10% IV SCH (17:00)
[2017-09-30] MEDS ORDERED: DEXTROSE 70% IV SCH (17:00)
[2017-09-30] MEDS: [UNRECOGNIZED DRUG - OTHER] IV SCH (18:15)
[2017-09-30] MEDS: FAT EMULSION 20% 250 ML IV SCH (18:15)
[2017-09-30] MEDS: POTASSIUM PHOSPHATE IV SCH (18:15)
[2017-09-30] MEDS: MULTIVITAMIN IV SCH (18:15)
[2017-09-30] MEDS: TRACE ELEMENTS IV SCH (18:15)
[2017-09-30] MEDS: ATORVASTATIN 40 MG TABLET PO SCH (22:00)
[2017-09-30] MEDS: AMIODARONE 200 MG TABLET PO SCH (22:00)
[2017-10-01] MEDS: PIPERACILLIN/TAZOBACTAM 3,375 MG in SODIUM CHLORIDE 0.9% 100 ML IV SCH ×3 (01:40→18:09)
[2017-10-01] MEDS: INSULIN REGULAR 100 UNIT/ML SUBCUT SCH ×4 (01:43→18:09)
[2017-10-01] MEDS: ALBUTEROL/IPRATROPIUM 3 ML NEB RESP TX SCH ×4 (04:38→19:24)
[2017-10-01 05:38] LABS: Basophils # 0.1 10*3/uL (0.0-0.2); Basophils % 0.4 % (0.0-0.8); Eosinophils # 0.3 10*3/uL (0.0-0.87); Eosinophils % 1.8 % (0.00-10.9); Hematocrit 33.2 VOL% (42.0-52.0); Immature Granulocytes % 0.4 %; Immature Granulocytes Absolute 0.06 #; Lymphocytes # 1.9 10*3/uL (1.4-4.0); Lymphocytes % 12.5 % (21.2-54.2); Mean Corpuscular HGB Conc 33.1 GM/DL (32-36); Mean Corpuscular Hemoglobin 30 PG (27-34); Mean Platelet Volume 11.8 FL (9.6-12.0); Monocytes # 1.1 10*3/uL (0.11-0.8); Monocytes % 7.3 % (1.7-12.7); Neutrophils # 11.9 10*3/uL (1.4-7.4); Neutrophils % 77.6 % (38.7-73.9); Platelet Count 886 T/CUMM (130-400); Red Blood Count 3.69 MC/CUMM (3.8-5.5); Red Cell Distribution Width 13.7 % (9.3-17.3); White Blood Count 15.3 T/CUMM (4-12)
[2017-10-01 06:13] LABS: Alanine Aminotransferase 44 U/L (16-61); Albumin 2.1 G/DL (3.4-5.0); Alkaline Phosphatase 176 U/L (45-117); Aspartate Amino Transferase 48 U/L (0-37); Blood Urea Nitrogen 23 MG/DL (7-18); Calcium 8.1 MG/DL (8.5-10.1); Glucose 142 MG/DL (74-106); Osmolality,Calculated 280.7 MOS/KG (273-304); Potassium 3.8 MMOL/L (3.5-5.1); Sodium 138 MMOL/L (136-145); Total Protein 7.4 G/DL (6.4-8.3)
[2017-10-01 06:18] LABS: Bilirubin,Indirect 0.7 MG/DL (0.0-1.0)
[2017-10-01] MEDS: CARVEDILOL 6.25 MG TABLET PO SCH ×2 (10:12→18:08)
[2017-10-01] MEDS: ASPIRIN CHEW 81 MG TABLET PO SCH (10:12)
[2017-10-01] MEDS: AMIODARONE 200 MG TABLET PO SCH ×2 (10:12→23:08)
[2017-10-01] MEDS: SERTRALINE 50 MG TABLET PO SCH ×2 (10:12→23:09)
[2017-10-01] MEDS: CAPTOPRIL 12.5 MG TABLET PO SCH ×3 (10:12→23:08)
[2017-10-01] MEDS: PANTOPRAZOLE 40 MG VIAL IV SCH (10:38)
[2017-10-01] MEDS: MULTIVITAMIN IV SCH (18:08)
[2017-10-01] MEDS: TRACE ELEMENTS IV SCH (18:08)
[2017-10-01] MEDS: POTASSIUM PHOSPHATE IV SCH (18:08)
[2017-10-01] MEDS: FAT EMULSION 20% 250 ML IV SCH (18:08)
[2017-10-01] MEDS: [UNRECOGNIZED DRUG - OTHER] IV SCH (18:08)
[2017-10-01] MEDS: ATORVASTATIN 40 MG TABLET PO SCH (23:09)
[2017-10-02] MEDS: ALBUTEROL/IPRATROPIUM 3 ML NEB RESP TX SCH ×4 (00:26→19:23)
[2017-10-02] MEDS: PIPERACILLIN/TAZOBACTAM 3,375 MG in SODIUM CHLORIDE 0.9% 100 ML IV SCH ×3 (01:50→18:50)
[2017-10-02] MEDS: INSULIN REGULAR 100 UNIT/ML SUBCUT SCH ×4 (01:58→18:50)
[2017-10-02 03:55] LABS: Basophils # 0.1 10*3/uL (0.0-0.2); Basophils % 0.5 % (0.0-0.8); Eosinophils # 0.4 10*3/uL (0.0-0.87); Eosinophils % 3.1 % (0.00-10.9); Hematocrit 32.8 VOL% (42.0-52.0); Hemoglobin 11.2 GM/DL (14.0-18.0); Immature Granulocytes % 0.6 %; Immature Granulocytes Absolute 0.08 #; Lymphocytes # 2.4 10*3/uL (1.4-4.0); Lymphocytes % 17.3 % (21.2-54.2); Mean Corpuscular HGB Conc 34.1 GM/DL (32-36); Mean Corpuscular Hemoglobin 30 PG (27-34); Mean Corpuscular Volume 88.9 FL (87-102); Mean Platelet Volume 11.8 FL (9.6-12.0); Monocytes # 1.2 10*3/uL (0.11-0.8); Monocytes % 8.4 % (1.7-12.7); Neutrophils # 9.8 10*3/uL (1.4-7.4); Neutrophils % 70.1 % (38.7-73.9); Platelet Count 813 T/CUMM (130-400); Red Blood Count 3.69 MC/CUMM (3.8-5.5); Red Cell Distribution Width 13.7 % (9.3-17.3)
[2017-10-02 04:18] LABS: Calcium 8.2 MG/DL (8.5-10.1); Osmolality,Calculated 276.8 MOS/KG (273-304); Potassium 3.7 MMOL/L (3.5-5.1)
[2017-10-02] MEDS: MORPHINE 4 MG/1 ML VIAL IV PRN (04:32)
[2017-10-02] MEDS: PANTOPRAZOLE 40 MG VIAL IV SCH (10:45)
[2017-10-02] MEDS: SERTRALINE 50 MG TABLET PO SCH ×2 (10:45→20:57)
[2017-10-02] MEDS: SIMETHICONE CHEW 125 MG TABLET PO PRN ×3 (10:45→18:15)
[2017-10-02] MEDS: CARVEDILOL 6.25 MG TABLET PO SCH ×2 (10:45→18:15)
[2017-10-02] MEDS: CAPTOPRIL 12.5 MG TABLET PO SCH ×3 (10:45→20:57)
[2017-10-02] MEDS: AMIODARONE 200 MG TABLET PO SCH ×2 (10:45→20:57)
[2017-10-02] MEDS: ASPIRIN CHEW 81 MG TABLET PO SCH (10:45)
[2017-10-02] MEDS: oxyCODONE/ACETAMINOPHEN 5-325 MG TABLET PO PRN ×2 (11:53→18:15)
[2017-10-02] MEDS: FAT EMULSION 20% 250 ML IV SCH (14:38)
[2017-10-02] MEDS: [UNRECOGNIZED DRUG - OTHER] IV SCH (18:49)
[2017-10-02] MEDS: TRACE ELEMENTS IV SCH (18:49)
[2017-10-02] MEDS: POTASSIUM PHOSPHATE IV SCH (18:49)
[2017-10-02] MEDS: MULTIVITAMIN IV SCH (18:49)
[2017-10-02] MEDS: ATORVASTATIN 40 MG TABLET PO SCH (20:57)
[2017-10-03] MEDS: INSULIN REGULAR 100 UNIT/ML SUBCUT SCH ×4 (00:03→17:52)
[2017-10-03] MEDS: SIMETHICONE CHEW 125 MG TABLET PO PRN ×2 (00:04→05:54)
[2017-10-03] MEDS: oxyCODONE/ACETAMINOPHEN 5-325 MG TABLET PO PRN ×3 (00:04→10:14)
[2017-10-03] MEDS: ALBUTEROL/IPRATROPIUM 3 ML NEB RESP TX SCH ×4 (00:25→19:24)
[2017-10-03] MEDS: PIPERACILLIN/TAZOBACTAM 3,375 MG in SODIUM CHLORIDE 0.9% 100 ML IV SCH ×3 (01:52→19:01)
[2017-10-03 04:38] LABS: Basophils # 0.1 10*3/uL (0.0-0.2); Basophils % 0.4 % (0.0-0.8); Eosinophils # 0.6 10*3/uL (0.0-0.87); Eosinophils % 4.7 % (0.00-10.9); Hematocrit 33.2 VOL% (42.0-52.0); Hemoglobin 11.3 GM/DL (14.0-18.0); Immature Granulocytes % 0.4 %; Immature Granulocytes Absolute 0.05 #; Lymphocytes # 2.4 10*3/uL (1.4-4.0); Mean Corpuscular Hemoglobin 30 PG (27-34); Mean Corpuscular Volume 88.1 FL (87-102); Mean Platelet Volume 11.8 FL (9.6-12.0); Monocytes # 1.1 10*3/uL (0.11-0.8); Monocytes % 8.7 % (1.7-12.7); Neutrophils # 8.3 10*3/uL (1.4-7.4); Neutrophils % 66.8 % (38.7-73.9); Platelet Count 716 T/CUMM (130-400); Red Blood Count 3.77 MC/CUMM (3.8-5.5); Red Cell Distribution Width 13.8 % (9.3-17.3); White Blood Count 12.5 T/CUMM (4-12)
[2017-10-03 05:15] LABS: Bilirubin,Indirect 0.3 MG/DL (0.0-1.0)
[2017-10-03 05:20] LABS: Alanine Aminotransferase 47 U/L (16-61); Albumin 2.2 G/DL (3.4-5.0); Alkaline Phosphatase 181 U/L (45-117); Aspartate Amino Transferase 35 U/L (0-37); Blood Urea Nitrogen 20 MG/DL (7-18); Calcium 8.3 MG/DL (8.5-10.1); Glucose 130 MG/DL (74-106); Osmolality,Calculated 274.1 MOS/KG (273-304); Prealbumin 25.7 MG/DL (20-40); Sodium 135 MMOL/L (136-145); Total Protein 7.1 G/DL (6.4-8.3)
[2017-10-03] MEDS: CARVEDILOL 6.25 MG TABLET PO SCH ×2 (09:34→16:49)
[2017-10-03] MEDS: ASPIRIN CHEW 81 MG TABLET PO SCH (09:34)
[2017-10-03] MEDS: AMIODARONE 200 MG TABLET PO SCH ×2 (09:34→21:59)
[2017-10-03] MEDS: CAPTOPRIL 12.5 MG TABLET PO SCH ×3 (09:34→21:59)
[2017-10-03] MEDS: SERTRALINE 50 MG TABLET PO SCH ×2 (09:34→21:59)
[2017-10-03] MEDS: PANTOPRAZOLE 40 MG VIAL IV SCH (11:02)
[2017-10-03] MEDS: FAT EMULSION 20% 250 ML IV SCH (15:35)
[2017-10-03] MEDS: TRACE ELEMENTS IV SCH (21:35)
[2017-10-03] MEDS: POTASSIUM PHOSPHATE IV SCH (21:35)
[2017-10-03] MEDS: MULTIVITAMIN IV SCH (21:35)
[2017-10-03] MEDS: [UNRECOGNIZED DRUG - OTHER] IV SCH (21:35)
[2017-10-03] MEDS: ATORVASTATIN 40 MG TABLET PO SCH (21:59)
[2017-10-04] MEDS: ALBUTEROL/IPRATROPIUM 3 ML NEB RESP TX SCH ×4 (00:04→19:50)
[2017-10-04] MEDS: INSULIN REGULAR 100 UNIT/ML SUBCUT SCH ×4 (00:42→17:11)
[2017-10-04] MEDS: PIPERACILLIN/TAZOBACTAM 3,375 MG in SODIUM CHLORIDE 0.9% 100 ML IV SCH ×3 (02:21→17:41)
[2017-10-04 05:01] LABS: Basophils # 0.1 10*3/uL (0.0-0.2); Basophils % 0.4 % (0.0-0.8); Eosinophils # 0.6 10*3/uL (0.0-0.87); Eosinophils % 5.1 % (0.00-10.9); Hematocrit 33.2 VOL% (42.0-52.0); Hemoglobin 11.2 GM/DL (14.0-18.0); Immature Granulocytes % 0.4 %; Immature Granulocytes Absolute 0.05 #; Lymphocytes % 17.3 % (21.2-54.2); Mean Corpuscular HGB Conc 33.7 GM/DL (32-36); Mean Corpuscular Hemoglobin 30 PG (27-34); Mean Platelet Volume 11.2 FL (9.6-12.0); Monocytes % 8.4 % (1.7-12.7); Neutrophils # 7.9 10*3/uL (1.4-7.4); Neutrophils % 68.4 % (38.7-73.9); Platelet Count 771 T/CUMM (130-400); Red Blood Count 3.73 MC/CUMM (3.8-5.5); Red Cell Distribution Width 13.5 % (9.3-17.3); White Blood Count 11.6 T/CUMM (4-12)
[2017-10-04 05:32] LABS: Alanine Aminotransferase 37 U/L (16-61); Albumin 2.4 G/DL (3.4-5.0); Alkaline Phosphatase 172 U/L (45-117); Aspartate Amino Transferase 24 U/L (0-37); Blood Urea Nitrogen 19 MG/DL (7-18); Calcium 8.2 MG/DL (8.5-10.1); Glucose 139 MG/DL (74-106); Osmolality,Calculated 273.1 MOS/KG (273-304); Potassium 4.2 MMOL/L (3.5-5.1); Sodium 135 MMOL/L (136-145); Total Protein 7.2 G/DL (6.4-8.3)
[2017-10-04 05:36] LABS: Bilirubin,Indirect 0.2 MG/DL (0.0-1.0)
[2017-10-04] MEDS: CAPTOPRIL 12.5 MG TABLET PO SCH ×3 (09:26→21:36)
[2017-10-04] MEDS: ASPIRIN CHEW 81 MG TABLET PO SCH (09:26)
[2017-10-04] MEDS: AMIODARONE 200 MG TABLET PO SCH ×2 (09:26→21:36)
[2017-10-04] MEDS: SERTRALINE 50 MG TABLET PO SCH ×2 (09:26→21:37)
[2017-10-04] MEDS: CARVEDILOL 6.25 MG TABLET PO SCH ×2 (09:27→17:40)
[2017-10-04] MEDS: PANTOPRAZOLE 40 MG VIAL IV SCH (09:27)
[2017-10-04] MEDS: FAT EMULSION 20% 250 ML IV SCH (14:32)
[2017-10-04] MEDS: ATORVASTATIN 40 MG TABLET PO SCH (21:36)
[2017-10-05] MEDS: INSULIN REGULAR 100 UNIT/ML SUBCUT SCH ×4 (00:42→17:49)
[2017-10-05] MEDS: ALBUTEROL/IPRATROPIUM 3 ML NEB RESP TX SCH ×4 (01:10→18:55)
[2017-10-05] MEDS: PIPERACILLIN/TAZOBACTAM 3,375 MG in SODIUM CHLORIDE 0.9% 100 ML IV SCH ×2 (02:47→10:18)
[2017-10-05 06:57] LABS: Basophils % 0.4 % (0.0-0.8); Eosinophils # 0.4 10*3/uL (0.0-0.87); Eosinophils % 3.7 % (0.00-10.9); Hematocrit 33.2 VOL% (42.0-52.0); Hemoglobin 11.1 GM/DL (14.0-18.0); Immature Granulocytes % 0.3 %; Immature Granulocytes Absolute 0.03 #; Lymphocytes # 2.3 10*3/uL (1.4-4.0); Lymphocytes % 23.5 % (21.2-54.2); Mean Corpuscular HGB Conc 33.4 GM/DL (32-36); Mean Corpuscular Hemoglobin 30 PG (27-34); Mean Corpuscular Volume 89.5 FL (87-102); Mean Platelet Volume 11.2 FL (9.6-12.0); Monocytes # 0.8 10*3/uL (0.11-0.8); Monocytes % 8.5 % (1.7-12.7); Neutrophils # 6.2 10*3/uL (1.4-7.4); Neutrophils % 63.6 % (38.7-73.9); Platelet Count 737 T/CUMM (130-400); Red Blood Count 3.71 MC/CUMM (3.8-5.5); Red Cell Distribution Width 13.5 % (9.3-17.3); White Blood Count 9.8 T/CUMM (4-12)
[2017-10-05 07:12] LABS: Calcium 8.3 MG/DL (8.5-10.1); Osmolality,Calculated 263.5 MOS/KG (273-304); Potassium 4.3 MMOL/L (3.5-5.1)
[2017-10-05] MEDS: PANTOPRAZOLE 40 MG VIAL IV SCH (10:01)
[2017-10-05] MEDS: SERTRALINE 50 MG TABLET PO SCH ×2 (10:02→21:09)
[2017-10-05] MEDS: CAPTOPRIL 12.5 MG TABLET PO SCH ×3 (10:02→21:09)
[2017-10-05] MEDS: AMIODARONE 200 MG TABLET PO SCH ×2 (10:02→21:10)
[2017-10-05] MEDS: CARVEDILOL 6.25 MG TABLET PO SCH ×2 (10:02→17:49)
[2017-10-05] MEDS: ASPIRIN CHEW 81 MG TABLET PO SCH (10:02)
[2017-10-05] MEDS: ATORVASTATIN 40 MG TABLET PO SCH (21:09)
[2017-10-06] MEDS: ALBUTEROL/IPRATROPIUM 3 ML NEB RESP TX SCH ×4 (00:05→19:41)
[2017-10-06] MEDS: INSULIN REGULAR 100 UNIT/ML SUBCUT SCH ×4 (00:37→17:46)
[2017-10-06 06:55] LABS: Calcium 8.8 MG/DL (8.5-10.1); Osmolality,Calculated 268.2 MOS/KG (273-304)
[2017-10-06] MEDS: CARVEDILOL 6.25 MG TABLET PO SCH ×2 (08:59→17:46)
[2017-10-06] MEDS: oxyCODONE/ACETAMINOPHEN 5-325 MG TABLET PO PRN (08:59)
[2017-10-06] MEDS: CAPTOPRIL 12.5 MG TABLET PO SCH ×3 (08:59→21:37)
[2017-10-06] MEDS: PANTOPRAZOLE 40 MG VIAL IV SCH (09:00)
[2017-10-06] MEDS: AMIODARONE 200 MG TABLET PO SCH ×2 (09:00→21:38)
[2017-10-06] MEDS: SERTRALINE 50 MG TABLET PO SCH ×2 (09:00→21:38)
[2017-10-06] MEDS: ASPIRIN CHEW 81 MG TABLET PO SCH (09:01)
[2017-10-06] MEDS: ATORVASTATIN 40 MG TABLET PO SCH (21:38)
[2017-10-07] MEDS: ALBUTEROL/IPRATROPIUM 3 ML NEB RESP TX SCH ×2 (00:37→07:17)
[2017-10-07] MEDS: INSULIN REGULAR 100 UNIT/ML SUBCUT SCH ×3 (05:41→13:00)
[2017-10-07 06:25] LABS: Calcium 8.7 MG/DL (8.5-10.1); Osmolality,Calculated 270.1 MOS/KG (273-304); Potassium 3.9 MMOL/L (3.5-5.1)
[2017-10-07] MEDS: PANTOPRAZOLE 40 MG VIAL IV SCH (09:49)
[2017-10-07] MEDS: SERTRALINE 50 MG TABLET PO SCH (09:49)
[2017-10-07] MEDS: CARVEDILOL 6.25 MG TABLET PO SCH (09:49)
[2017-10-07] MEDS: AMIODARONE 200 MG TABLET PO SCH (09:49)
[2017-10-07] MEDS: CAPTOPRIL 12.5 MG TABLET PO SCH (09:49)
[2017-10-07] MEDS: ASPIRIN CHEW 81 MG TABLET PO SCH (09:49)
[2017-10-07 12:01] VITALS: BP 138/85
== END 2017-10-07 12:44 | disposition home or self-care (01) | DRG 233 ==
LOC: N.CL 05:49 → N.CVR 14:17 → N.TELES 09-15 15:00 → N.ICU 09-16 22:18 → N.TELES 09-29 14:30
PROC: CLCCHCL (ICD-10-PCS; 2017-09-14 09:45)

== ENCOUNTER 2017-10-19 14:05 | Observation (INO) ==
[2017-10-19 14:53] LABS: Basophils % 0.2 % (0.0-0.8); Eosinophils # 0.2 10*3/uL (0.0-0.87); Eosinophils % 2.7 % (0.00-10.9); Hematocrit 36.2 VOL% (42.0-52.0); Immature Granulocytes % 0.3 %; Immature Granulocytes Absolute 0.03 #; Lymphocytes % 22.5 % (21.2-54.2); Mean Corpuscular HGB Conc 33.1 GM/DL (32-36); Mean Corpuscular Hemoglobin 30 PG (27-34); Mean Corpuscular Volume 89.6 FL (87-102); Mean Platelet Volume 10.9 FL (9.6-12.0); Monocytes # 0.6 10*3/uL (0.11-0.8); Monocytes % 7.1 % (1.7-12.7); Neutrophils % 67.2 % (38.7-73.9); Platelet Count 226 T/CUMM (130-400); Red Blood Count 4.04 MC/CUMM (3.8-5.5); Red Cell Distribution Width 14.1 % (9.3-17.3)
[2017-10-19 14:59] LABS: Alanine Aminotransferase 43 U/L (16-61); Alkaline Phosphatase 128 U/L (45-117); Aspartate Amino Transferase 20 U/L (0-37); Bilirubin,Total < 0.39 MG/DL (0.2-1.0); Blood Urea Nitrogen 8 MG/DL (7-18); Calcium 8.2 MG/DL (8.5-10.1); Glucose 135 MG/DL (74-106); Osmolality,Calculated 272.8 MOS/KG (273-304); Potassium 3.3 MMOL/L (3.5-5.1); Sodium 137 MMOL/L (136-145); Total Protein 7.4 G/DL (6.4-8.3)
[2017-10-19 15:21] LABS: Apearance,Urine CLEAR (Clear); Bilirubin,Urine Negative (Negative); Blood, Urine Small mg/dL (Negative); Glucose,Urine (UA) Negative (Negative); Ketones,Urine Negative (Negative); Mucus,Urine Occasional /LPF (Occasional); Nitrite,Urine Negative (Negative); Protein,Urine Negative; RBC,Urine 1 /HPF (0-4); Urine Color Straw (Yellow); Urine Specific Gravity 1.005 (1.001-1.035); Urine Urobilinogen < 2.0 EU/DL (0.2-1.0); WBC,Urine 2 /HPF (0-6)
[2017-10-19] MEDS ORDERED: POTASSIUM CHLORIDE 20 MEQ TABLET PO STA (15:33)
[2017-10-19] MEDS ORDERED: ONDANSETRON 4 MG/2 ML VIAL IV PRN (17:24)
[2017-10-19] MEDS ORDERED: POTASSIUM CHLORIDE 20 MEQ TABLET PO SCH (17:30)
[2017-10-19] MEDS ORDERED: ENOXAPARIN 40 MG/0.4 ML SYRINGE SUBCUT SCH ×2 (17:30→21:00)
[2017-10-19] MEDS: SODIUM CHLORIDE 0.9% 1,000 ML IV SCH (18:56)
[2017-10-19] MEDS: AMIODARONE 200 MG TABLET PO SCH (20:45)
[2017-10-19] MEDS: SERTRALINE 50 MG TABLET PO SCH (20:46)
[2017-10-19] MEDS: POTASSIUM CHLORIDE 20 MEQ TABLET PO SCH (20:46)
[2017-10-19] MEDS ORDERED: ATORVASTATIN 40 MG TABLET PO SCH (21:00)
[2017-10-20] MEDS: POTASSIUM CHLORIDE 20 MEQ TABLET PO SCH (02:45)
[2017-10-20] MEDS: SODIUM CHLORIDE 0.9% 1,000 ML IV SCH ×2 (02:45→10:46)
[2017-10-20] MEDS ORDERED: POTASSIUM CHLORIDE 20 MEQ TABLET PO SCH (03:00)
[2017-10-20 05:50] LABS: Basophils % 0.3 % (0.0-0.8); Eosinophils # 0.3 10*3/uL (0.0-0.87); Eosinophils % 4.1 % (0.00-10.9); Hematocrit 37.7 VOL% (42.0-52.0); Hemoglobin 12.7 GM/DL (14.0-18.0); Immature Granulocytes % 0.3 %; Immature Granulocytes Absolute 0.02 #; Lymphocytes # 2.9 10*3/uL (1.4-4.0); Lymphocytes % 40.7 % (21.2-54.2); Mean Corpuscular HGB Conc 33.7 GM/DL (32-36); Mean Corpuscular Hemoglobin 30 PG (27-34); Mean Corpuscular Volume 88.3 FL (87-102); Mean Platelet Volume 11.6 FL (9.6-12.0); Monocytes # 0.6 10*3/uL (0.11-0.8); Neutrophils # 3.3 10*3/uL (1.4-7.4); Neutrophils % 46.6 % (38.7-73.9); Platelet Count 239 T/CUMM (130-400); Red Blood Count 4.27 MC/CUMM (3.8-5.5); Red Cell Distribution Width 14.3 % (9.3-17.3); White Blood Count 7.1 T/CUMM (4-12)
[2017-10-20 06:31] LABS: Calcium 8.7 MG/DL (8.5-10.1); Osmolality,Calculated 279.3 MOS/KG (273-304); Potassium 4.2 MMOL/L (3.5-5.1); Risk Ratio 2.62; Thyroid Stimulating Hormone 3.11 uIU/ml (0.358-3.74); VLDL CHOLESTEROL 23.2 MG/DL
[2017-10-20] MEDS ORDERED: CARVEDILOL 6.25 MG TABLET PO SCH (08:00)
[2017-10-20] MEDS: AMIODARONE 200 MG TABLET PO SCH (08:54)
[2017-10-20] MEDS: SERTRALINE 50 MG TABLET PO SCH (08:55)
[2017-10-20] MEDS ORDERED: ASPIRIN CHEW 81 MG TABLET PO SCH (09:00)
[2017-10-20] MEDS ORDERED: PANTOPRAZOLE 40 MG TABLET PO SCH (09:00)
[2017-10-20] MEDS ORDERED: BETAMETHASONE VALERATE 0.1% CREAM 15 GM TUBE TOP SCH (12:30)
[2017-10-20 16:10] VITALS: BP 124/89
== END 2017-10-20 17:05 | disposition home or self-care (01) ==
LOC: EDBD → EDUNIT# → N.EDINP 14:05 → N.ED 14:05 → N.2E 18:18
PROVIDERS: ADMIT Internal Medicine; ATTEND Internal Medicine

== ENCOUNTER 2018-06-23 05:38 | Inpatient (IN) ==
[2018-06-15 11:10] LABS: Basophils % 0.2 % (0.0-0.8); Eosinophils # 0.3 10*3/uL (0.0-0.87); Eosinophils % 3.7 % (0.00-10.9); Hematocrit 42.9 VOL% (42.0-52.0); Hemoglobin 14.8 GM/DL (14.0-18.0); Immature Granulocytes % 0.2 %; Immature Granulocytes Absolute 0.02 #; Lymphocytes # 4.3 10*3/uL (1.4-4.0); Mean Corpuscular HGB Conc 34.5 GM/DL (32-36); Mean Corpuscular Hemoglobin 32 PG (27-34); Mean Corpuscular Volume 92.9 FL (87-102); Mean Platelet Volume 10.7 FL (9.6-12.0); Monocytes # 0.8 10*3/uL (0.11-0.8); Monocytes % 9.4 % (1.7-12.7); Neutrophils # 2.9 10*3/uL (1.4-7.4); Neutrophils % 34.5 % (38.7-73.9); Platelet Count 221 T/CUMM (130-400); Red Blood Count 4.62 MC/CUMM (3.8-5.5); Red Cell Distribution Width 13.2 % (9.3-17.3); White Blood Count 8.3 T/CUMM (4-12)
[2018-06-15 11:39] LABS: Atypical Lymphocytes Few; Eosinophils 6 % (0-10); Lymphocytes 43 % (20-55); Microcytosis Slight; Segmented Neutrophils 41 % (50-85); Total Cells Counted 100
[2018-06-15 11:40] LABS: Platelet Estimate Normal
[2018-06-15 11:42] LABS: Albumin 3.8 G/DL (3.4-5.0); Bilirubin,Total 0.4 MG/DL (0.2-1.0); Calcium 8.9 MG/DL (8.5-10.1); Osmolality,Calculated 272.8 MOS/KG (273-304); Total Protein 7.6 G/DL (6.4-8.3)
[2018-06-23] MEDS ORDERED: ACETAMINOPHEN 500 MG TABLET PO ONE (06:13)
[2018-06-23] MEDS ORDERED: GABAPENTIN 400 MG CAPSULE PO ONE (06:13)
[2018-06-23] MEDS ORDERED: LACTATED RINGERS 1,000 ML IV SCH (06:30)
[2018-06-23] MEDS ORDERED: ALVIMOPAN 12 MG CAPSULE PO ONE (06:30)
[2018-06-23] MEDS ORDERED: cefOXitin 1,000 MG in SYRINGE 1 EACH IV ONE (06:30)
[2018-06-23] MEDS ORDERED: EPINEPHrine 1 MG/ML VIAL ONE (06:31)
[2018-06-23] MEDS ORDERED: LIDOCAINE 1% 5 ML VIAL ONE (06:31)
[2018-06-23] MEDS ORDERED: BUPIVACAINE 0.5% 50 ML VIAL ONE (06:32)
[2018-06-23] MEDS ORDERED: ALVIMOPAN 12 MG CAPSULE ONE (06:50)
[2018-06-23] MEDS ORDERED: MIDAZOLAM 2 MG/2 ML VIAL ONE (12:56)
[2018-06-23] MEDS ORDERED: PROPOFOL 200 MG/20 ML VIAL IV ONE (12:56)
[2018-06-23] MEDS ORDERED: SEVOFLURANE 1 UNIT/15 MINUTE INH ONE (12:56)
[2018-06-23] MEDS ORDERED: fentaNYL 100 MCG/2 ML VIAL ONE (12:57)
[2018-06-23] MEDS ORDERED: ePHEDrine 50 MG/ML AMP ONE (12:57)
[2018-06-23] MEDS ORDERED: ONDANSETRON 4 MG/2 ML VIAL ONE (12:57)
[2018-06-23] MEDS ORDERED: GLYCOPYRROLATE 0.4 MG/2 ML VIAL ONE ×2 (12:58)
[2018-06-23] MEDS ORDERED: LACTATED RINGERS 1,000 ML IV ONE (12:58)
[2018-06-23] MEDS ORDERED: NEOSTIGMINE 10 MG/10 ML VIAL ONE (12:58)
[2018-06-23] MEDS ORDERED: ROCURONIUM 100 MG/10 ML VIAL IV ONE (12:58)
[2018-06-23] MEDS ORDERED: SUCCINYLCHOLINE 200 MG/10 ML VIAL ONE (12:58)
[2018-06-23] MEDS ORDERED: SODIUM CHLORIDE 0.9% 100 ML IV ONE (12:58)
[2018-06-23] MEDS ORDERED: PHENYLEPHRINE 10 MG/1 ML VIAL IV ONE (12:58)
[2018-06-23] MEDS ORDERED: PHENYLEPHRINE 1 MG/10 ML SYRINGE IV ONE (12:58)
[2018-06-23] MEDS ORDERED: ONDANSETRON 4 MG/2 ML VIAL IV PRN (13:04)
[2018-06-23] MEDS: HYDROmorphone 2 MG/1 ML VIAL IV PRN ×7 (13:19→22:15)
[2018-06-23] MEDS ORDERED: ALVIMOPAN 12 MG CAPSULE PO SCH (13:30)
[2018-06-23] MEDS: DEXTROSE 5% NACL 0.45% 1,000 ML IV SCH ×2 (14:39→22:35)
[2018-06-23] MEDS: PANTOPRAZOLE 40 MG VIAL IV SCH (14:39)
[2018-06-23 15:18] LABS: Amorphous Crystals,Urine Occasional /HPF (Few); Apearance,Urine Slightly Hazy (Clear); Bilirubin,Urine Negative (Negative); Blood, Urine Negative (Negative); Glucose,Urine (UA) Negative (Negative); Ketones,Urine Negative (Negative); Mucus,Urine Occasional /LPF (Occasional); Nitrite,Urine Negative (Negative); Protein,Urine Negative; RBC,Urine 1 /HPF (0-4); Urine Color Yellow (Yellow); Urine Specific Gravity 1.014 (1.001-1.035); Urine Urobilinogen < 2.0 EU/DL (0.2-1.0); WBC,Urine <1 /HPF (0-6)
[2018-06-23] MEDS ORDERED: METOPROLOL TARTRATE 5 MG/5 ML VIAL IV PRN (16:42)
[2018-06-23] MEDS ORDERED: CARVEDILOL 6.25 MG TABLET PO SCH (17:00)
[2018-06-23] MEDS: cefOXitin 2,000 MG in SYRINGE 1 EACH IV SCH (18:08)
[2018-06-24] MEDS: cefOXitin 2,000 MG in SYRINGE 1 EACH IV SCH ×2 (00:33→06:10)
[2018-06-24] MEDS: HYDROmorphone 2 MG/1 ML VIAL IV PRN ×7 (00:48→20:49)
[2018-06-24 06:36] LABS: Basophils % 0.1 % (0.0-0.8); Hematocrit 42.6 VOL% (42.0-52.0); Hemoglobin 14.1 GM/DL (14.0-18.0); Immature Granulocytes % 0.6 %; Lymphocytes # 2.5 10*3/uL (1.4-4.0); Lymphocytes % 14.9 % (21.2-54.2); Mean Corpuscular HGB Conc 33.1 GM/DL (32-36); Mean Corpuscular Hemoglobin 32 PG (27-34); Mean Corpuscular Volume 96.2 FL (87-102); Mean Platelet Volume 11.5 FL (9.6-12.0); Monocytes # 1.3 10*3/uL (0.11-0.8); Monocytes % 7.6 % (1.7-12.7); Neutrophils % 76.8 % (38.7-73.9); Platelet Count 188 T/CUMM (130-400); Red Blood Count 4.43 MC/CUMM (3.8-5.5); Red Cell Distribution Width 13.4 % (9.3-17.3)
[2018-06-24 06:59] LABS: Albumin 3.3 G/DL (3.4-5.0); Bilirubin,Total 1.9 MG/DL (0.2-1.0); Calcium 8.1 MG/DL (8.5-10.1); Osmolality,Calculated 278.7 MOS/KG (273-304); Potassium 4.1 MMOL/L (3.5-5.1); Total Protein 6.9 G/DL (6.4-8.3)
[2018-06-24] MEDS: DEXTROSE 5% NACL 0.45% 1,000 ML IV SCH ×2 (08:43→17:05)
[2018-06-24] MEDS: PANTOPRAZOLE 40 MG VIAL IV SCH (08:51)
[2018-06-24] MEDS ORDERED: LACTATED RINGERS 1,000 ML IV ONE (11:24)
[2018-06-24] MEDS: ONDANSETRON 4 MG/2 ML VIAL IV PRN (11:57)
[2018-06-24] MEDS ORDERED: ACETAMINOPHEN INJ 1,000 MG in PREMIX 1 EACH IV ONE (13:00)
[2018-06-24] MEDS: ASPIRIN CHEW 81 MG TABLET PO SCH (13:07)
[2018-06-25] MEDS: DEXTROSE 5% NACL 0.45% 1,000 ML IV SCH ×3 (01:05→18:21)
[2018-06-25] MEDS: HYDROmorphone 2 MG/1 ML VIAL IV PRN ×3 (02:39→23:30)
[2018-06-25] MEDS: ASPIRIN CHEW 81 MG TABLET PO SCH (09:00)
[2018-06-25] MEDS: KETOROLAC 15 MG/1 ML VIAL IV PRN ×2 (09:38→19:56)
[2018-06-25] MEDS: PANTOPRAZOLE 40 MG VIAL IV SCH (09:38)
[2018-06-25] MEDS: ENOXAPARIN 40 MG/0.4 ML SYRINGE SUBCUT SCH (09:38)
[2018-06-25] MEDS: ONDANSETRON 4 MG/2 ML VIAL IV PRN (09:39)
[2018-06-25 10:50] LABS: Basophils % 0.1 % (0.0-0.8); Hematocrit 35.1 VOL% (42.0-52.0); Hemoglobin 11.7 GM/DL (14.0-18.0); Immature Granulocytes % 0.8 %; Immature Granulocytes Absolute 0.14 #; Lymphocytes % 11.4 % (21.2-54.2); Mean Corpuscular HGB Conc 33.3 GM/DL (32-36); Mean Corpuscular Hemoglobin 32 PG (27-34); Mean Corpuscular Volume 95.6 FL (87-102); Mean Platelet Volume 10.8 FL (9.6-12.0); Monocytes # 0.9 10*3/uL (0.11-0.8); Monocytes % 5.3 % (1.7-12.7); Neutrophils # 14.1 10*3/uL (1.4-7.4); Neutrophils % 82.4 % (38.7-73.9); Platelet Count 142 T/CUMM (130-400); Red Blood Count 3.67 MC/CUMM (3.8-5.5); Red Cell Distribution Width 13.2 % (9.3-17.3); White Blood Count 17.2 T/CUMM (4-12)
[2018-06-25 11:06] LABS: Calcium 8.2 MG/DL (8.5-10.1); Osmolality,Calculated 274.8 MOS/KG (273-304); Potassium 3.9 MMOL/L (3.5-5.1)
[2018-06-26] MEDS: DEXTROSE 5% NACL 0.45% 1,000 ML IV SCH ×3 (03:18→15:26)
[2018-06-26 04:52] LABS: Basophils % 0.1 % (0.0-0.8); Eosinophils # 0.1 10*3/uL (0.0-0.87); Eosinophils % 0.4 % (0.00-10.9); Hematocrit 34.8 VOL% (42.0-52.0); Hemoglobin 11.5 GM/DL (14.0-18.0); Immature Granulocytes % 0.8 %; Immature Granulocytes Absolute 0.12 #; Lymphocytes # 2.3 10*3/uL (1.4-4.0); Lymphocytes % 15.7 % (21.2-54.2); Mean Corpuscular Hemoglobin 32 PG (27-34); Mean Corpuscular Volume 96.7 FL (87-102); Mean Platelet Volume 11.7 FL (9.6-12.0); Monocytes % 6.9 % (1.7-12.7); Neutrophils % 76.1 % (38.7-73.9); Platelet Count 150 T/CUMM (130-400); Red Cell Distribution Width 13.4 % (9.3-17.3); White Blood Count 14.5 T/CUMM (4-12)
[2018-06-26 05:08] LABS: Calcium 8.5 MG/DL (8.5-10.1); Osmolality,Calculated 272.8 MOS/KG (273-304); Potassium 3.8 MMOL/L (3.5-5.1)
[2018-06-26] MEDS: HYDROmorphone 2 MG/1 ML VIAL IV PRN ×6 (05:27→23:07)
[2018-06-26] MEDS: ASPIRIN CHEW 81 MG TABLET PO SCH (10:16)
[2018-06-26] MEDS: ENOXAPARIN 40 MG/0.4 ML SYRINGE SUBCUT SCH (10:25)
[2018-06-26] MEDS: PIPERACILLIN/TAZOBACTAM 3,375 MG in SODIUM CHLORIDE 0.9% 100 ML IV SCH ×2 (10:25→17:14)
[2018-06-26] MEDS: PANTOPRAZOLE 40 MG VIAL IV SCH (10:25)
[2018-06-26] MEDS: KETOROLAC 15 MG/1 ML VIAL IV PRN (10:26)
[2018-06-26] MEDS: ASPIRIN 300 MG SUPP RECTAL SCH (12:30)
[2018-06-26] MEDS ORDERED: LACTATED RINGERS 1,000 ML IV ONE (19:46)
[2018-06-27] MEDS: DEXTROSE 5% NACL 0.45% 1,000 ML IV SCH ×3 (00:14→23:52)
[2018-06-27] MEDS: PIPERACILLIN/TAZOBACTAM 3,375 MG in SODIUM CHLORIDE 0.9% 100 ML IV SCH ×3 (02:29→17:31)
[2018-06-27] MEDS: HYDROmorphone 2 MG/1 ML VIAL IV PRN ×4 (03:25→21:12)
[2018-06-27 05:22] LABS: Basophils % 0.2 % (0.0-0.8); Eosinophils % 0.1 % (0.00-10.9); Hematocrit 36.4 VOL% (42.0-52.0); Hemoglobin 12.2 GM/DL (14.0-18.0); Immature Granulocytes % 0.5 %; Immature Granulocytes Absolute 0.06 #; Lymphocytes # 2.2 10*3/uL (1.4-4.0); Lymphocytes % 16.5 % (21.2-54.2); Mean Corpuscular HGB Conc 33.5 GM/DL (32-36); Mean Corpuscular Hemoglobin 32 PG (27-34); Mean Platelet Volume 11.1 FL (9.6-12.0); Monocytes # 1.4 10*3/uL (0.11-0.8); Monocytes % 10.2 % (1.7-12.7); Neutrophils # 9.7 10*3/uL (1.4-7.4); Neutrophils % 72.5 % (38.7-73.9); Platelet Count 197 T/CUMM (130-400); Red Blood Count 3.83 MC/CUMM (3.8-5.5); Red Cell Distribution Width 13.2 % (9.3-17.3); White Blood Count 13.3 T/CUMM (4-12)
[2018-06-27 05:32] LABS: Calcium 8.4 MG/DL (8.5-10.1); Osmolality,Calculated 273.8 MOS/KG (273-304); Potassium 3.7 MMOL/L (3.5-5.1)
[2018-06-27] MEDS: PANTOPRAZOLE 40 MG VIAL IV SCH (09:28)
[2018-06-27] MEDS: ENOXAPARIN 40 MG/0.4 ML SYRINGE SUBCUT SCH (09:29)
[2018-06-27] MEDS ORDERED: KETOROLAC 30 MG/1 ML VIAL IV ONE (10:15)
[2018-06-27] MEDS ORDERED: NALOXONE 0.4 MG/ML VIAL IV PRN (10:15)
[2018-06-27] MEDS ORDERED: HYDROmorphone PCA 30 MG/30 ML SYRINGE IV SCH (10:30)
[2018-06-27] MEDS ORDERED: HYDROcod/ACETAMIN 7.5-325 MG/15 ML UDCUP PO PRN ×2 (12:31)
[2018-06-27] MEDS: KETOROLAC 15 MG/1 ML VIAL IV SCH ×3 (13:46→23:06)
[2018-06-27] MEDS: ASPIRIN 300 MG SUPP RECTAL SCH (13:58)
[2018-06-28] MEDS: HYDROmorphone 2 MG/1 ML VIAL IV PRN ×4 (01:25→19:52)
[2018-06-28] MEDS: DEXTROSE 5% NACL 0.45% 1,000 ML IV SCH ×5 (01:27→22:45)
[2018-06-28] MEDS: PIPERACILLIN/TAZOBACTAM 3,375 MG in SODIUM CHLORIDE 0.9% 100 ML IV SCH ×3 (01:30→18:36)
[2018-06-28] MEDS: KETOROLAC 15 MG/1 ML VIAL IV SCH ×4 (05:12→22:38)
[2018-06-28] MEDS: ASPIRIN 300 MG SUPP RECTAL SCH (09:25)
[2018-06-28] MEDS: ENOXAPARIN 40 MG/0.4 ML SYRINGE SUBCUT SCH (09:26)
[2018-06-28] MEDS: PANTOPRAZOLE 40 MG VIAL IV SCH (09:26)
[2018-06-29] MEDS: HYDROmorphone 2 MG/1 ML VIAL IV PRN ×6 (00:37→19:59)
[2018-06-29] MEDS: PIPERACILLIN/TAZOBACTAM 3,375 MG in SODIUM CHLORIDE 0.9% 100 ML IV SCH ×3 (01:12→18:22)
[2018-06-29 04:26] LABS: Basophils % 0.2 % (0.0-0.8); Eosinophils # 0.3 10*3/uL (0.0-0.87); Eosinophils % 2.5 % (0.00-10.9); Hematocrit 32.1 VOL% (42.0-52.0); Hemoglobin 10.8 GM/DL (14.0-18.0); Immature Granulocytes % 1.1 %; Immature Granulocytes Absolute 0.14 #; Lymphocytes # 2.7 10*3/uL (1.4-4.0); Lymphocytes % 20.7 % (21.2-54.2); Mean Corpuscular HGB Conc 33.6 GM/DL (32-36); Mean Corpuscular Hemoglobin 32 PG (27-34); Mean Corpuscular Volume 94.1 FL (87-102); Mean Platelet Volume 11.1 FL (9.6-12.0); Monocytes # 1.2 10*3/uL (0.11-0.8); Monocytes % 8.9 % (1.7-12.7); NRBC # 0.03 10*3/uL; Neutrophils # 8.6 10*3/uL (1.4-7.4); Neutrophils % 66.6 % (38.7-73.9); Platelet Count 229 T/CUMM (130-400); Red Blood Count 3.41 MC/CUMM (3.8-5.5); White Blood Count 12.9 T/CUMM (4-12)
[2018-06-29] MEDS: KETOROLAC 15 MG/1 ML VIAL IV SCH ×4 (04:41→22:19)
[2018-06-29 04:43] LABS: Calcium 8.2 MG/DL (8.5-10.1); Potassium 3.4 MMOL/L (3.5-5.1)
[2018-06-29] MEDS: DEXTROSE 5% NACL 0.45% 1,000 ML IV SCH ×2 (05:42→10:00)
[2018-06-29] MEDS: TAMSULOSIN 0.4 MG CAPSULE PO SCH (08:38)
[2018-06-29] MEDS: PANTOPRAZOLE 40 MG VIAL IV SCH (08:40)
[2018-06-29] MEDS: ENOXAPARIN 40 MG/0.4 ML SYRINGE SUBCUT SCH (08:40)
[2018-06-29] MEDS: CARVEDILOL 6.25 MG TABLET PO SCH ×2 (09:46→20:00)
[2018-06-29] MEDS: ASPIRIN 300 MG SUPP RECTAL SCH (09:47)
[2018-06-30] MEDS: PIPERACILLIN/TAZOBACTAM 3,375 MG in SODIUM CHLORIDE 0.9% 100 ML IV SCH ×2 (01:14→11:05)
[2018-06-30] MEDS: KETOROLAC 15 MG/1 ML VIAL IV SCH ×4 (04:33→21:30)
[2018-06-30] MEDS: DEXTROSE 5% NACL 0.45% 1,000 ML IV SCH (06:59)
[2018-06-30] MEDS: PANTOPRAZOLE 40 MG VIAL IV SCH (09:34)
[2018-06-30] MEDS: CARVEDILOL 6.25 MG TABLET PO SCH ×2 (09:36→21:12)
[2018-06-30] MEDS: ENOXAPARIN 40 MG/0.4 ML SYRINGE SUBCUT SCH (09:36)
[2018-06-30] MEDS: TAMSULOSIN 0.4 MG CAPSULE PO SCH (09:36)
[2018-06-30] MEDS: ASPIRIN 300 MG SUPP RECTAL SCH (10:37)
[2018-06-30] MEDS: ASPIRIN CHEW 81 MG TABLET PO SCH (12:15)
[2018-06-30] MEDS ORDERED: POTASSIUM CHLORIDE 20 MEQ/15 ML UDCUP PO ONE (19:23)
[2018-06-30] MEDS: ONDANSETRON 4 MG/2 ML VIAL IV PRN ×2 (21:49→21:51)
[2018-07-01] MEDS: KETOROLAC 15 MG/1 ML VIAL IV SCH (05:13)
[2018-07-01 08:01] VITALS: BP 142/84
[2018-07-01] MEDS: ASPIRIN CHEW 81 MG TABLET PO SCH (08:49)
[2018-07-01] MEDS: TAMSULOSIN 0.4 MG CAPSULE PO SCH (08:49)
[2018-07-01] MEDS: ENOXAPARIN 40 MG/0.4 ML SYRINGE SUBCUT SCH (08:50)
[2018-07-01] MEDS: PANTOPRAZOLE 40 MG VIAL IV SCH (08:50)
[2018-07-01] MEDS: CARVEDILOL 6.25 MG TABLET PO SCH (08:59)
== END 2018-07-01 10:36 | disposition home or self-care (01) | DRG 330 ==
LOC: N.SDSINP 05:38 → N.3E 14:19
PROVIDERS: ADMIT Surgery; ATTEND Surgery

== ENCOUNTER 2018-07-28 19:36 | Inpatient (IN) ==
[2018-07-28 22:39] LABS: Basophils # 0.1 10*3/uL (0.0-0.2); Basophils % 0.4 % (0.0-0.8); Eosinophils # 0.3 10*3/uL (0.0-0.87); Eosinophils % 2.5 % (0.00-10.9); Hematocrit 36.5 VOL% (42.0-52.0); Hemoglobin 11.9 GM/DL (14.0-18.0); Immature Granulocytes % 0.3 %; Immature Granulocytes Absolute 0.04 #; Lymphocytes # 3.9 10*3/uL (1.4-4.0); Lymphocytes % 30.3 % (21.2-54.2); Mean Corpuscular HGB Conc 32.6 GM/DL (32-36); Mean Corpuscular Hemoglobin 30 PG (27-34); Mean Corpuscular Volume 92.2 FL (87-102); Mean Platelet Volume 9.8 FL (9.6-12.0); Monocytes # 0.8 10*3/uL (0.11-0.8); Monocytes % 6.2 % (1.7-12.7); Neutrophils # 7.8 10*3/uL (1.4-7.4); Neutrophils % 60.3 % (38.7-73.9); Platelet Count 447 T/CUMM (130-400); Red Blood Count 3.96 MC/CUMM (3.8-5.5)
[2018-07-28 22:57] LABS: Albumin 3.1 G/DL (3.4-5.0); Bilirubin,Total 0.4 MG/DL (0.2-1.0); Calcium 8.8 MG/DL (8.5-10.1); Osmolality,Calculated 266.2 MOS/KG (273-304); Potassium 3.5 MMOL/L (3.5-5.1)
[2018-07-29 00:06] LABS: Apearance,Urine CLEAR (Clear); Bacteria,Urine Occasional /HPF (Few); Bilirubin,Urine Negative (Negative); Blood, Urine Small mg/dL (Negative); Glucose,Urine (UA) Negative (Negative); Ketones,Urine Negative (Negative); Mucus,Urine Occasional /LPF (Occasional); Nitrite,Urine Negative (Negative); Protein,Urine Negative; RBC,Urine 2 /HPF (0-4); Urine Color Yellow (Yellow); Urine Specific Gravity 1.033 (1.001-1.035); Urine Urobilinogen < 2.0 EU/DL (0.2-1.0); WBC,Urine 1 /HPF (0-6)
[2018-07-29] MEDS ORDERED: CEFEPIME 2,000 MG in SODIUM CHLORIDE 0.9% 100 ML IV STA (00:12)
[2018-07-29] MEDS ORDERED: VANCOMYCIN INJ 1,000 MG in SODIUM CHLORIDE 0.9% 250 ML IV STA (00:13)
[2018-07-29] MEDS ORDERED: ACETAMINOPHEN 325 MG TABLET PO PRN (00:15)
[2018-07-29] MEDS ORDERED: ONDANSETRON 4 MG/2 ML VIAL IV PRN (00:15)
[2018-07-29] MEDS: VANCOMYCIN INJ 1,250 MG in SODIUM CHLORIDE 0.9% 250 ML IV SCH ×2 (05:55→13:54)
[2018-07-29] MEDS ORDERED: CEFEPIME 2,000 MG in SODIUM CHLORIDE 0.9% 100 ML IV SCH (09:00)
[2018-07-29] MEDS ORDERED: PANTOPRAZOLE 40 MG VIAL IV SCH (09:00)
[2018-07-29 12:19] VITALS: BP 122/82
== END 2018-07-29 14:09 | disposition home or self-care (01) | DRG 863 ==
LOC: N.ED 19:36 → N.EDINP 07-29 00:15 → N.2E 07-29 01:18
PROVIDERS: ADMIT Surgery; ATTEND Surgery